=== PATIENT | male | born 1955 | race Caucasian/White ===

== ENCOUNTER 2018-10-21 11:37 | Emergency (ER) | payer MEDICAID, OTHER ==
[~2018-10-21] VITALS: Ht 182.9 cm; Wt 136.4 kg
[~2018-10-21 11:37] MED LIST: CEPH-443 PO; FURO40TA4 PO; POTA20TA96 PO; SULF1TAB31 PO; THYR130T5 PO
[2018-10-21 12:00] VITALS: Ht 182.9 cm; Wt 136.4 kg
[2018-10-21] MEDS ORDERED: SOD CHLORIDE 0.9% 1,000 ML IV STA (12:17)
[2018-10-21] MEDS ORDERED: HYDROmorphONE 1 MG/ML SYG IV STA (12:17)
[2018-10-21] MEDS ORDERED: ONDANSETRON 4 MG INJ IV STA (12:17)
--- NOTE | 2018-10-21 12:29 | ERD ---
ER Documentation Chief Complaint Chief Complaint scrotal swelling x pain x 3 wks, HPI This is a 63-year-old male with a past medical history of insulin-dependent diabetes mellitus. The patient is diabetic foot ulcers which were also infected and being treated with antibiotics. The patient presents to the emergency department as he states for the past 3 weeks he had been experiencing scrotal swelling. He been placed on diuretics and he indicates that the scrotal swelling has significantly improved. He denies any currently residing at [facility] nursing [facility]. The patient is a PICC line as he is receiving IV antibiotics for recent bacteremia. The patient has bilateral scrotal pain contrary to the triage note. The patient states he is having diffuse body pain from lying in a bed. He is on Percocet for pain control and indicated he did not get his Percocet prior to transfer to [facility] via EMS. He states his main reason for coming to the emergency department today as he has had on control of his urine since he is been placed on antibiotics and given that he is bedbound states that he has been urinating all over the bed. He is requesting a per [facility] catheter. He indicates he cannot handle placement of indwelling Cordova catheter states he is prone to infection and indicated to painful. He had no recent fever shaking or chills. He has no shortness of breath at rest or exertion. He denies any hematuria. ROS All systems reviewed and are negative except as per history of present illness. Medications Home Meds Active Scripts Sulfamethoxazole/Trimethoprim* (Bactrim Ds* Tablet) 1 Each Tablet, 1 TAB PO BID, #14 TAB Prov:JAY CARD MD 01/24/18 Cephalexin* (Keflex*) 500 Mg Capsule, 500 MG PO QID for 7 Days, CAP Prov:JAY CARD MD 01/24/18 Reported Medications Thyroid,Pork (Nature-Throid) 130 Mg Tablet, 130 MG PO DAILY, TAB 01/24/18 Potassium Chloride* (Potassium Chloride*) 20 Meq Tablet.er, 20 MEQ PO DAILY, TAB.SA 01/24/18 Furosemide* (Furosemide*) 40 Mg Tablet, 40 MG PO BID, TAB 01/24/18 Allergies Allergies: Coded Allergies: codeine (Unverified Allergy, Unknown, 01/24/18) PMhx/Soc History of Surgery: Yes (SPLEENECTOMY, TONSILS) Anesthesia Reaction: No Hx Neurological Disorder: No Hx Respiratory Disorders: No Hx Cardiac Disorders: No Hx Psychiatric Problems: No Hx Miscellaneous Medical Probl: Yes (HYPOTHYROID, HEPT C, DM) Hx Alcohol Use: No Hx Substance Use: No Hx Tobacco Use: No Physical Exam Vitals Vital Signs Date Temp Pulse Resp B/P (MAP) Pulse Ox O2 O2 Flow FiO2 Time Delivery Rate 10/21/18 97.8 81 18 128/71 95 12:00 (90) Physical Exam Constitutional:Well-developed. Well-nourished. HEENT:Normocephalic. Atraumatic.Pupils were equal round reactive to light. Dry mucous membranes.No tonsillar exudates. Respiratory: Not using accessory muscles of respiration.Lungs were clear to auscultation bilaterally. No rhonchi. No rales. No wheezing. Cardiovascular: Regular rate regular rhythm.No murmurs. No rubs were appreciated.S1, S2 normal. Distal pulses are palpable 2+ bilaterally. GI: Abdomen was soft. Nontender. Non Distended. No pulsatile abdominal masses or bruits. No rebound. No guarding. Bowel sounds were present and normal. : Bilateral scrotal swelling with no tenderness. Normal lie to both testicles. No warmth fluctuance or induration and no evidence of Dee's gangrene. Skin: No petechia, no purpura. No lesions on the palms or the soles of the feet. No maculopapular rash. Bilateral diabetic foot ulcers but no purulent drainage. Pain not out of proportion to physical exam. Present on the plantar surfaces of both feet. NEURO: Patient was alert, awake, orientated x3.patient is able to ambulate but requires assistance with a walker. Result Diagram: 10/21/18 1238 Results 24 hrs Laboratory Tests Test 10/21/18 12:38 White Blood Count 12.6 10^3/ul Red Blood Count 4.04 10^6/ul Hemoglobin 10.9 g/dl Hematocrit 34.6 % Mean Corpuscular Volume 85.6 fl Mean Corpuscular Hemoglobin 27.0 pg Mean Corpuscular Hemoglobin Concent 31.5 g/dl Red Cell Distribution Width 15.9 % Platelet Count 389 10^3/UL Mean Platelet Volume 10.5 fl Immature Granulocytes % 0.500 % Neutrophils % 69.2 % Lymphocytes % 12.7 % Monocytes % 11.2 % Eosinophils % 5.7 % Basophils % 0.7 % Nucleated Red Blood Cells % 0.0 /100WBC Immature Granulocytes # 0.060 10^3/ul Neutrophils # 8.7 10^3/ul Lymphocytes # 1.6 10^3/ul Monocytes # 1.4 10^3/ul Eosinophils # 0.7 10^3/ul Basophils # 0.1 10^3/ul Nucleated Red Blood Cells # 0.0 10^3/ul Current Medications Medications Dose Sig/Charity Start Time Status Last (Trade) Ordered Route PRN Stop Time Admin Dose Reason Admin Oxycodone/ 1 tab ONCE ONCE 10/21/18 Cancel Acetaminophen PO 12:30 10/21/18 (Endocet 12:31 (10 325)) Sodium 1,000 ml @ Q1H STAT 10/21/18 DC Chloride 1,000 mls/hr IV 12:17 10/21/18 13:16 1 mg ONCE STAT 10/21/18 DC 10/21/18 Hydromorphone IV 12:17 10/21/18 13:01 HCl 12:18 (Dilaudid) Ondansetron 4 mg ONCE STAT 10/21/18 DC 10/21/18 HCl (Zofran IV 12:17 10/21/18 13:01 Inj) 12:18 Procedures/MDM This is a 63-year-old male that presents to the emergency department requesting a Purewick catheter. The patient did show signs of clinical dehydration. The patient was given a liter bolus normal saline. He was also given intravenous Dilaudid and Zofran for analgesic control as the patient had not received his regular analgesic medication prior to arrival and was very uncomfortable lying on the bed. The patient had no urinary retention. No evidence of Dee's gangrene. He is currently undergoing antibiotics for bacteremia. The patient was requesting a Cordova catheter for urinary frequency which appeared to be a result of a diuretic. Both nursing staff and myself phoned central distribution in the OR but there were no purewick catheters available. The patient was very adamant that he only wanted a pure wick catheter and denied an indwelling Cordova catheter. Therefore at this time the patient was discharged back to [facility] and stated he will talk to his primary care physician Dr. Zurita about ordering a pure wick catheter which was initially placed at [facility]. Departure Diagnosis: Primary Impression: Urinary frequency Additional Impression: Dehydration Condition: OLIVER Hoffman MD Oct 21, 2018 12:29
[2018-10-21] MEDS ORDERED: OXYCODONE/ACETAMINOPHEN (10/325) TAB PO ONE ×2 (12:30→16:30)
[2018-10-21 18:26] VITALS: BP 130/57; PULSE 80; RESP 18
== END 2018-10-21 18:37 | disposition home or self-care (01) ==
LOC: E/R 11:37
DX: R35.0 Frequency of micturition (principal); E86.0 Dehydration; E03.9 Hypothyroidism, unspecified; E11.9 Type 2 diabetes mellitus without complications
CPT/HCPCS: 80053; 85025; 96374; J1170; J2405; J7030; Z7502; Z7610

== ENCOUNTER 2018-11-02 16:33 | Inpatient (IN) | payer OTHER ==
[~2018-11-02] VITALS: Ht 182.9 cm; Wt 116.1 kg
[~2018-11-02 16:33] MED LIST changes: +CARV6.2579 PO; +CIPR500T4 PO; +CLO15CR1 TOP; +FLUC200T PO; +HYDR-3670 PO; +LACHYD12 TOP; +LEVO125T7 PO; +LINE600T33 PO; +PRED20TA PO; +SODI473S5 TP; +TRAM50TA2 PO
[2018-11-03] VITALS (10 sets, daily range): BP systolic 133–152; BP diastolic 65–81; PULSE 71–112; RESP 18–20; BMI 46.1
[2018-11-03] MEDS ORDERED: traMADol 50 MG TAB PO PRN (02:30)
[2018-11-03] MEDS ORDERED: NACL 0.9% 3 ML SYG IV SCH (02:30)
[2018-11-03] MEDS ORDERED: VANCOMYCIN IV PER PHARMACY XX SCH (02:30)
[2018-11-03] MEDS ORDERED: ACETAMINOPHEN 325 MG TAB PO PRN (02:30)
[2018-11-03] MEDS ORDERED: ALBUTEROL/IPRATROPIUM (NEB) 3 ML AMP HHN PRN (02:30)
[2018-11-03] MEDS ORDERED: DEXTROSE 50% 50 ML SYRINGE IV PRN ×2 (03:00)
[2018-11-03] MEDS ORDERED: GLUCOSE GEL 15 GRAM TUBE BUCCAL PRN (03:00)
[2018-11-03] MEDS ORDERED: GLUCOSE GEL 15 GRAM TUBE PO PRN ×2 (03:00)
[2018-11-03] MEDS ORDERED: GLUCAGON 1 MG INJ IM PRN (03:00)
[2018-11-03] MEDS ORDERED: VANCOMYCIN HCL 2 GM in SOD CHLORIDE 0.9% 500 ML IVPB ONE (04:00)
[2018-11-03] MEDS ORDERED: PENDING SANTYL ORDER FOR WOUND CARE XX PRN (04:30)
[2018-11-03] MEDS: POTASSIUM CHLORIDE (SR) 20 MEQ TAB PO SCH (08:29)
[2018-11-03] MEDS: FUROSEMIDE 40 MG TAB PO SCH ×2 (08:29→16:59)
[2018-11-03] MEDS: CEFEPIME 1GM/50 ML (PMX) 50 ML IVPB SCH ×2 (08:30→20:45)
[2018-11-03] MEDS: HEPARIN 5,000 UNIT/1 ML VIAL SC SCH ×2 (08:33→21:15)
[2018-11-03] MEDS: INSULIN ASPART [NOVOLOG] 3 ML PEN SC SCH ×4 (08:35→21:00)
[2018-11-03] MEDS ORDERED: THYROID PORK 130 MG PO SCH (09:00)
[2018-11-03] MEDS: BACLOFEN 10 MG TAB PO SCH ×2 (12:31→20:44)
[2018-11-03] MEDS: HYDROCODONE/APAP (5/325) TAB PO PRN ×2 (14:06→20:44)
[2018-11-03] MEDS: INSULIN GLARGINE [LANTus] (100 UNITS/ML) SYG SC SCH (21:14)
[2018-11-03] MEDS: VANCOMYCIN HCL 1.5 GM in SOD CHLORIDE 0.9% 250 ML IVPB SCH (22:54)
[2018-11-04] VITALS (11 sets, daily range): BP systolic 106–135; BP diastolic 54–77; PULSE 70–88; RESP 18–20
[2018-11-04] MEDS: ACCU-CHEK XX SCH (01:52)
[2018-11-04] MEDS: HYDROCODONE/APAP (5/325) TAB PO PRN ×5 (02:36→22:44)
[2018-11-04] MEDS: FUROSEMIDE 40 MG TAB PO SCH ×2 (06:35→18:14)
[2018-11-04] MEDS: LEVOTHYROXINE 125 MCG TAB PO SCH (06:36)
[2018-11-04] MEDS: INSULIN ASPART [NOVOLOG] 3 ML PEN SC SCH ×4 (07:55→21:00)
[2018-11-04] MEDS: POTASSIUM CHLORIDE (SR) 20 MEQ TAB PO SCH (08:31)
[2018-11-04] MEDS: AMMONIUM LACTATE 12% 225 GM LOT TOP SCH (08:31)
[2018-11-04] MEDS: BACLOFEN 10 MG TAB PO SCH ×3 (08:31→21:07)
[2018-11-04] MEDS: CEFEPIME 1GM/50 ML (PMX) 50 ML IVPB SCH ×3 (08:31→21:06)
[2018-11-04] MEDS: DAKINS 0.0125%(1/40) 473 ML SOLUTION TP SCH (08:35)
[2018-11-04] MEDS: HEPARIN 5,000 UNIT/1 ML VIAL SC SCH ×2 (08:56→21:27)
[2018-11-04] MEDS: VANCOMYCIN HCL 1.5 GM in SOD CHLORIDE 0.9% 250 ML IVPB SCH ×2 (10:28→23:06)
[2018-11-04] MEDS ORDERED: LORAZEPAM 2 MG INJ IV ONE (11:00)
[2018-11-04] MEDS: NYSTATIN 30 GM POWDER BTL TOP SCH ×2 (15:50→22:12)
[2018-11-04] MEDS: INSULIN GLARGINE [LANTus] (100 UNITS/ML) SYG SC SCH (21:26)
[2018-11-05] VITALS (11 sets, daily range): BP systolic 120–159; BP diastolic 67–80; PULSE 55–92; RESP 18–20
[2018-11-05] MEDS: ACCU-CHEK XX SCH (02:00)
[2018-11-05] MEDS: HYDROCODONE/APAP (5/325) TAB PO PRN ×3 (02:56→23:52)
[2018-11-05] MEDS: LEVOTHYROXINE 125 MCG TAB PO SCH (06:36)
[2018-11-05] MEDS: FUROSEMIDE 40 MG TAB PO SCH ×2 (06:36→18:00)
[2018-11-05] MEDS: INSULIN ASPART [NOVOLOG] 3 ML PEN SC SCH ×4 (07:55→21:00)
[2018-11-05] MEDS: POTASSIUM CHLORIDE (SR) 20 MEQ TAB PO SCH (08:50)
[2018-11-05] MEDS: BACLOFEN 10 MG TAB PO SCH ×3 (08:50→20:39)
[2018-11-05] MEDS: CEFEPIME 1GM/50 ML (PMX) 50 ML IVPB SCH (08:50)
[2018-11-05] MEDS: AMMONIUM LACTATE 12% 225 GM LOT TOP SCH (08:54)
[2018-11-05] MEDS: NYSTATIN 30 GM POWDER BTL TOP SCH ×2 (08:54→22:20)
[2018-11-05] MEDS: DAKINS 0.0125%(1/40) 473 ML SOLUTION TP SCH (08:55)
[2018-11-05] MEDS: HEPARIN 5,000 UNIT/1 ML VIAL SC SCH ×2 (09:06→21:06)
[2018-11-05] MEDS ORDERED: VANCOMYCIN HCL 1.75 GM in SOD CHLORIDE 0.9% 500 ML IVPB SCH (11:00)
[2018-11-05] MEDS: LINEZOLID 600 MG/300 ML (PMX) 300 ML IVPB SCH (20:32)
[2018-11-05] MEDS: INSULIN GLARGINE [LANTus] (100 UNITS/ML) SYG SC SCH (21:21)
[2018-11-05] MEDS: ERTAPENEM SODIUM 1 GM in SOD CHLORIDE 0.9% 100 ML IVPB SCH (22:20)
[2018-11-06] VITALS (12 sets, daily range): BP systolic 118–136; BP diastolic 69–87; PULSE 73–100; RESP 18–20
[2018-11-06] MEDS: ACCU-CHEK XX SCH (02:00)
[2018-11-06] MEDS: HYDROCODONE/APAP (5/325) TAB PO PRN ×5 (04:34→20:36)
[2018-11-06] MEDS: LEVOTHYROXINE 125 MCG TAB PO SCH (06:51)
[2018-11-06] MEDS: FUROSEMIDE 40 MG TAB PO SCH ×2 (06:51→17:27)
[2018-11-06] MEDS: INSULIN ASPART [NOVOLOG] 3 ML PEN SC SCH ×4 (07:55→20:12)
[2018-11-06] MEDS: DAKINS 0.0125%(1/40) 473 ML SOLUTION TP SCH (08:24)
[2018-11-06] MEDS: NYSTATIN 30 GM POWDER BTL TOP SCH ×2 (08:24→20:08)
[2018-11-06] MEDS: AMMONIUM LACTATE 12% 225 GM LOT TOP SCH (08:24)
[2018-11-06] MEDS: LINEZOLID 600 MG/300 ML (PMX) 300 ML IVPB SCH (08:24)
[2018-11-06] MEDS: POTASSIUM CHLORIDE (SR) 20 MEQ TAB PO SCH (08:24)
[2018-11-06] MEDS: BACLOFEN 10 MG TAB PO SCH ×3 (08:24→20:05)
[2018-11-06] MEDS: HEPARIN 5,000 UNIT/1 ML VIAL SC SCH ×2 (08:33→20:28)
[2018-11-06] MEDS: FLUCONAZOLE 200 MG TAB PO SCH (10:30)
[2018-11-06] MEDS ORDERED: LIDOCAINE 1% (MPF) 5 ML VIAL SC ONE (10:30)
[2018-11-06] MEDS: INSULIN GLARGINE [LANTus] (100 UNITS/ML) SYG SC SCH (20:30)
[2018-11-06] MEDS: POLYETHYLENE GLYCOL 17 GM PACKET PO SCH (22:57)
[2018-11-06] MEDS: DOCUSATE SODIUM 100 MG CAP PO SCH (22:57)
[2018-11-07] VITALS (11 sets, daily range): BP systolic 120–157; BP diastolic 58–88; PULSE 67–97; RESP 17–20
[2018-11-07] MEDS: HYDROCODONE/APAP (5/325) TAB PO PRN ×6 (01:00→20:16)
[2018-11-07] MEDS: ACCU-CHEK XX SCH (02:00)
[2018-11-07] MEDS: LEVOTHYROXINE 125 MCG TAB PO SCH (06:18)
[2018-11-07] MEDS: FUROSEMIDE 40 MG TAB PO SCH ×2 (06:21→17:07)
[2018-11-07] MEDS: BACLOFEN 10 MG TAB PO SCH ×3 (07:52→20:15)
[2018-11-07] MEDS: FLUCONAZOLE 200 MG TAB PO SCH (07:52)
[2018-11-07] MEDS: DOCUSATE SODIUM 100 MG CAP PO SCH ×2 (07:52→20:16)
[2018-11-07] MEDS: CLOTRIMAZOLE 1% 30 GM CR TOP SCH (07:53)
[2018-11-07] MEDS: AMMONIUM LACTATE 12% 225 GM LOT TOP SCH (07:53)
[2018-11-07] MEDS: NYSTATIN 30 GM POWDER BTL TOP SCH ×2 (07:54→21:00)
[2018-11-07] MEDS: DAKINS 0.0125%(1/40) 473 ML SOLUTION TP SCH (07:54)
[2018-11-07] MEDS: INSULIN ASPART [NOVOLOG] 3 ML PEN SC SCH ×4 (07:55→21:00)
[2018-11-07] MEDS: POTASSIUM CHLORIDE (SR) 20 MEQ TAB PO SCH (08:14)
[2018-11-07] MEDS: LINEZOLID 600 MG/300 ML (PMX) 300 ML IVPB SCH ×2 (08:15→21:56)
[2018-11-07] MEDS: LISINOPRIL 5 MG TAB PO SCH (08:21)
[2018-11-07] MEDS: HEPARIN 5,000 UNIT/1 ML VIAL SC SCH ×2 (08:21→21:35)
[2018-11-07] MEDS: POLYETHYLENE GLYCOL 17 GM PACKET PO SCH (08:21)
[2018-11-07] MEDS ORDERED: MAGNESIUM SULFATE 2 GM/50 ML 50 ML IVPB ONE ×2 (08:30→09:00)
[2018-11-07] MEDS ORDERED: METOLAZONE 5 MG TAB PO ONE (08:30)
[2018-11-07] MEDS ORDERED: IODIXANOL LOCM 100 ML BTL ONE (17:46)
[2018-11-07] MEDS ORDERED: SOD CHLORIDE 0.9% 100 ML ONE (17:46)
[2018-11-07] MEDS ORDERED: IODIXANOL LOCM 50 ML BTL ONE (17:46)
[2018-11-07] MEDS: ERTAPENEM SODIUM 1 GM in SOD CHLORIDE 0.9% 100 ML IVPB SCH ×2 (20:20→20:30)
[2018-11-07] MEDS: ONDANSETRON 4 MG INJ IV PRN (21:31)
[2018-11-07] MEDS: INSULIN GLARGINE [LANTus] (100 UNITS/ML) SYG SC SCH (21:35)
[2018-11-08] VITALS (12 sets, daily range): BP systolic 125–158; BP diastolic 68–77; PULSE 61–94; RESP 16–22
[2018-11-08] MEDS: HYDROCODONE/APAP (5/325) TAB PO PRN ×4 (01:40→23:30)
[2018-11-08] MEDS: ACCU-CHEK XX SCH (02:15)
[2018-11-08] MEDS: ONDANSETRON 4 MG INJ IV PRN ×3 (05:53→23:30)
[2018-11-08] MEDS: LEVOTHYROXINE 125 MCG TAB PO SCH (06:10)
[2018-11-08] MEDS: FUROSEMIDE 40 MG TAB PO SCH ×2 (06:23→17:29)
[2018-11-08] MEDS: INSULIN ASPART [NOVOLOG] 3 ML PEN SC SCH ×4 (07:55→21:00)
[2018-11-08] MEDS: DOCUSATE SODIUM 100 MG CAP PO SCH ×2 (08:46→21:34)
[2018-11-08] MEDS: BACLOFEN 10 MG TAB PO SCH ×3 (08:46→21:34)
[2018-11-08] MEDS: LISINOPRIL 5 MG TAB PO SCH (08:47)
[2018-11-08] MEDS: FLUCONAZOLE 200 MG TAB PO SCH (08:48)
[2018-11-08] MEDS: POLYETHYLENE GLYCOL 17 GM PACKET PO SCH (08:49)
[2018-11-08] MEDS: LINEZOLID 600 MG/300 ML (PMX) 300 ML IVPB SCH (08:49)
[2018-11-08] MEDS: HEPARIN 5,000 UNIT/1 ML VIAL SC SCH ×2 (09:33→22:10)
[2018-11-08] MEDS: DAKINS 0.0125%(1/40) 473 ML SOLUTION TP SCH (12:51)
[2018-11-08] MEDS: AMMONIUM LACTATE 12% 225 GM LOT TOP SCH (12:51)
[2018-11-08] MEDS: CLOTRIMAZOLE 1% 30 GM CR TOP SCH (12:52)
[2018-11-08] MEDS: NYSTATIN 30 GM POWDER BTL TOP SCH ×2 (12:52→21:38)
[2018-11-08] MEDS: INSULIN GLARGINE [LANTus] (100 UNITS/ML) SYG SC SCH (20:00)
[2018-11-08] MEDS: ERTAPENEM SODIUM 1 GM in SOD CHLORIDE 0.9% 100 ML IVPB SCH (20:30)
[2018-11-08] MEDS: ZYVOX 600 MG TAB PO SCH (21:34)
[2018-11-09] VITALS (7 sets, daily range): BP systolic 118–159; BP diastolic 59–86; PULSE 77–95; RESP 17–20
[2018-11-09] MEDS: ACCU-CHEK XX SCH (02:00)
[2018-11-09] MEDS: HYDROCODONE/APAP (5/325) TAB PO PRN ×4 (03:57→21:13)
[2018-11-09] MEDS: FUROSEMIDE 40 MG TAB PO SCH ×2 (06:35→17:31)
[2018-11-09] MEDS: LEVOTHYROXINE 125 MCG TAB PO SCH (06:35)
[2018-11-09] MEDS: INSULIN ASPART [NOVOLOG] 3 ML PEN SC SCH ×4 (07:55→21:30)
[2018-11-09] MEDS ORDERED: SODIUM POLYSTYRENE 15 GM KIT (POWDER + SORBITOL) PO ONE (09:00)
[2018-11-09] MEDS ORDERED: METOLAZONE 5 MG TAB PO ONE (09:00)
[2018-11-09] MEDS: POLYETHYLENE GLYCOL 17 GM PACKET PO SCH (09:45)
[2018-11-09] MEDS: DOCUSATE SODIUM 100 MG CAP PO SCH ×2 (09:45→21:14)
[2018-11-09] MEDS: BACLOFEN 10 MG TAB PO SCH ×3 (09:45→21:14)
[2018-11-09] MEDS: LISINOPRIL 5 MG TAB PO SCH (09:45)
[2018-11-09] MEDS: ZYVOX 600 MG TAB PO SCH ×2 (09:45→21:14)
[2018-11-09] MEDS: FLUCONAZOLE 200 MG TAB PO SCH (09:46)
[2018-11-09] MEDS: ONDANSETRON 4 MG INJ IV PRN (10:04)
[2018-11-09] MEDS: HEPARIN 5,000 UNIT/1 ML VIAL SC SCH ×2 (10:08→21:30)
[2018-11-09] MEDS: NYSTATIN 30 GM POWDER BTL TOP SCH ×2 (12:52→21:00)
[2018-11-09] MEDS: DAKINS 0.0125%(1/40) 473 ML SOLUTION TP SCH (12:52)
[2018-11-09] MEDS: AMMONIUM LACTATE 12% 225 GM LOT TOP SCH (12:52)
[2018-11-09] MEDS: CLOTRIMAZOLE 1% 30 GM CR TOP SCH (12:53)
[2018-11-09] MEDS: INSULIN GLARGINE [LANTus] (100 UNITS/ML) SYG SC SCH (20:00)
[2018-11-09] MEDS: ERTAPENEM SODIUM 1 GM in SOD CHLORIDE 0.9% 100 ML IVPB SCH (21:35)
[2018-11-10] VITALS (7 sets, daily range): BP systolic 109–141; BP diastolic 56–75; PULSE 71–88; RESP 20
[2018-11-10] MEDS: ACCU-CHEK XX SCH (02:23)
[2018-11-10] MEDS: HYDROCODONE/APAP (5/325) TAB PO PRN ×2 (04:07→18:22)
[2018-11-10] MEDS: ONDANSETRON 4 MG INJ IV PRN (05:32)
[2018-11-10] MEDS: LEVOTHYROXINE 125 MCG TAB PO SCH (05:36)
[2018-11-10] MEDS: FUROSEMIDE 40 MG TAB PO SCH ×2 (05:36→17:31)
[2018-11-10] MEDS: INSULIN ASPART [NOVOLOG] 3 ML PEN SC SCH ×4 (07:41→20:51)
[2018-11-10] MEDS: BACLOFEN 10 MG TAB PO SCH ×3 (09:08→20:44)
[2018-11-10] MEDS: FLUCONAZOLE 200 MG TAB PO SCH (09:08)
[2018-11-10] MEDS: ZYVOX 600 MG TAB PO SCH ×2 (09:08→20:43)
[2018-11-10] MEDS: POLYETHYLENE GLYCOL 17 GM PACKET PO SCH (09:08)
[2018-11-10] MEDS: DOCUSATE SODIUM 100 MG CAP PO SCH ×2 (09:08→21:03)
[2018-11-10] MEDS: NYSTATIN 30 GM POWDER BTL TOP SCH ×2 (09:10→20:57)
[2018-11-10] MEDS: DAKINS 0.0125%(1/40) 473 ML SOLUTION TP SCH (09:10)
[2018-11-10] MEDS: AMMONIUM LACTATE 12% 225 GM LOT TOP SCH (09:10)
[2018-11-10] MEDS: CLOTRIMAZOLE 1% 30 GM CR TOP SCH (09:11)
[2018-11-10] MEDS: HEPARIN 5,000 UNIT/1 ML VIAL SC SCH ×2 (09:18→20:48)
[2018-11-10] MEDS: INSULIN GLARGINE [LANTus] (100 UNITS/ML) SYG SC SCH (20:38)
[2018-11-11] MEDS: ERTAPENEM SODIUM 1 GM in SOD CHLORIDE 0.9% 100 ML IVPB SCH ×2 (00:01→21:00)
[2018-11-11] MEDS: HYDROCODONE/APAP (5/325) TAB PO PRN ×3 (01:12→23:12)
[2018-11-11] MEDS: ACCU-CHEK XX SCH (02:00)
[2018-11-11 03:36] VITALS: BP 119/74; PULSE 82; RESP 20
[2018-11-11] MEDS: FUROSEMIDE 40 MG TAB PO SCH ×2 (05:49→18:06)
[2018-11-11] MEDS: LEVOTHYROXINE 125 MCG TAB PO SCH (05:49)
[2018-11-11 07:50] VITALS: BP 145/79; PULSE 75; RESP 20
[2018-11-11] MEDS: INSULIN ASPART [NOVOLOG] 3 ML PEN SC SCH ×4 (07:55→20:56)
[2018-11-11] MEDS: BACLOFEN 10 MG TAB PO SCH ×3 (08:54→20:48)
[2018-11-11] MEDS: ZYVOX 600 MG TAB PO SCH ×2 (08:55→20:48)
[2018-11-11] MEDS: FLUCONAZOLE 200 MG TAB PO SCH (08:55)
[2018-11-11] MEDS: POLYETHYLENE GLYCOL 17 GM PACKET PO SCH (08:56)
[2018-11-11] MEDS: DOCUSATE SODIUM 100 MG CAP PO SCH ×2 (08:56→20:48)
[2018-11-11] MEDS: HEPARIN 5,000 UNIT/1 ML VIAL SC SCH ×2 (09:01→20:51)
[2018-11-11 11:50] VITALS: BP 141/71; PULSE 80; RESP 20
[2018-11-11] MEDS: NYSTATIN 30 GM POWDER BTL TOP SCH ×2 (13:39→21:26)
[2018-11-11] MEDS: DAKINS 0.0125%(1/40) 473 ML SOLUTION TP SCH (13:43)
[2018-11-11] MEDS: AMMONIUM LACTATE 12% 225 GM LOT TOP SCH (13:43)
[2018-11-11] MEDS: CLOTRIMAZOLE 1% 30 GM CR TOP SCH (13:43)
[2018-11-11 15:22] VITALS: BP 140/63; PULSE 90; RESP 20
[2018-11-11 19:23] VITALS: BP 121/59; PULSE 79; RESP 18
[2018-11-11] MEDS: INSULIN GLARGINE [LANTus] (100 UNITS/ML) SYG SC SCH (20:00)
[2018-11-12] MEDS: ACCU-CHEK XX SCH (02:00)
[2018-11-12 04:41] VITALS: BP 127/74; PULSE 92; RESP 18
[2018-11-12] MEDS: FUROSEMIDE 40 MG TAB PO SCH (06:20)
[2018-11-12] MEDS: LEVOTHYROXINE 125 MCG TAB PO SCH (06:20)
[2018-11-12] MEDS: HYDROCODONE/APAP (5/325) TAB PO PRN ×3 (06:21→21:06)
[2018-11-12 07:25] VITALS: BP 132/72; PULSE 90; RESP 18
[2018-11-12] MEDS: INSULIN ASPART [NOVOLOG] 3 ML PEN SC SCH ×4 (07:52→21:00)
[2018-11-12] MEDS: AMMONIUM LACTATE 12% 225 GM LOT TOP SCH (08:51)
[2018-11-12] MEDS: NYSTATIN 30 GM POWDER BTL TOP SCH ×2 (08:52→21:24)
[2018-11-12] MEDS: DAKINS 0.0125%(1/40) 473 ML SOLUTION TP SCH (08:52)
[2018-11-12] MEDS: CLOTRIMAZOLE 1% 30 GM CR TOP SCH (08:52)
[2018-11-12] MEDS: ZYVOX 600 MG TAB PO SCH ×2 (08:52→21:06)
[2018-11-12] MEDS: FLUCONAZOLE 200 MG TAB PO SCH (08:52)
[2018-11-12] MEDS: BACLOFEN 10 MG TAB PO SCH ×3 (08:52→21:06)
[2018-11-12] MEDS: POLYETHYLENE GLYCOL 17 GM PACKET PO SCH (08:53)
[2018-11-12] MEDS: DOCUSATE SODIUM 100 MG CAP PO SCH ×2 (08:53→21:07)
[2018-11-12] MEDS: HEPARIN 5,000 UNIT/1 ML VIAL SC SCH ×2 (08:58→21:14)
[2018-11-12 12:00] VITALS: BP 129/75; PULSE 84; RESP 19
[2018-11-12 15:28] VITALS: BP 114/56; PULSE 84; RESP 19
[2018-11-12 20:00] VITALS: BP 108/56; PULSE 76; RESP 18
[2018-11-12] MEDS: ERTAPENEM SODIUM 1 GM in SOD CHLORIDE 0.9% 100 ML IVPB SCH (20:54)
[2018-11-13] VITALS (7 sets, daily range): BP systolic 116–143; BP diastolic 62–75; PULSE 70–86; RESP 18–20
[2018-11-13] MEDS: ACCU-CHEK XX SCH (02:00)
[2018-11-13] MEDS: HYDROCODONE/APAP (5/325) TAB PO PRN ×3 (04:31→17:59)
[2018-11-13] MEDS: LEVOTHYROXINE 125 MCG TAB PO SCH (06:30)
[2018-11-13] MEDS: POLYETHYLENE GLYCOL 17 GM PACKET PO SCH (08:25)
[2018-11-13] MEDS: DOCUSATE SODIUM 100 MG CAP PO SCH ×2 (08:26→21:34)
[2018-11-13] MEDS: BACLOFEN 10 MG TAB PO SCH ×3 (08:27→21:35)
[2018-11-13] MEDS: FLUCONAZOLE 200 MG TAB PO SCH (08:27)
[2018-11-13] MEDS: ZYVOX 600 MG TAB PO SCH ×2 (08:27→21:34)
[2018-11-13] MEDS: DAKINS 0.0125%(1/40) 473 ML SOLUTION TP SCH (08:28)
[2018-11-13] MEDS: AMMONIUM LACTATE 12% 225 GM LOT TOP SCH (08:28)
[2018-11-13] MEDS: CLOTRIMAZOLE 1% 30 GM CR TOP SCH (08:28)
[2018-11-13] MEDS: NYSTATIN 30 GM POWDER BTL TOP SCH ×2 (08:29→21:36)
[2018-11-13] MEDS: INSULIN ASPART [NOVOLOG] 3 ML PEN SC SCH ×4 (08:55→21:00)
[2018-11-13] MEDS: HEPARIN 5,000 UNIT/1 ML VIAL SC SCH ×2 (08:55→22:04)
[2018-11-13] MEDS: ERTAPENEM SODIUM 1 GM in SOD CHLORIDE 0.9% 100 ML IVPB SCH (21:34)
[2018-11-14] VITALS (10 sets, daily range): BP systolic 114–150; BP diastolic 63–84; PULSE 74–106; RESP 14–22
[2018-11-14] MEDS: HYDROCODONE/APAP (5/325) TAB PO PRN ×4 (00:07→22:32)
[2018-11-14] MEDS: ACCU-CHEK XX SCH (02:00)
[2018-11-14] MEDS: LEVOTHYROXINE 125 MCG TAB PO SCH (05:42)
[2018-11-14] MEDS: INSULIN ASPART [NOVOLOG] 3 ML PEN SC SCH ×4 (07:55→21:00)
[2018-11-14] MEDS: CLOTRIMAZOLE 1% 30 GM CR TOP SCH (08:41)
[2018-11-14] MEDS: ZYVOX 600 MG TAB PO SCH ×2 (08:41→21:11)
[2018-11-14] MEDS: BACLOFEN 10 MG TAB PO SCH ×3 (08:41→21:11)
[2018-11-14] MEDS: FLUCONAZOLE 200 MG TAB PO SCH (08:41)
[2018-11-14] MEDS: NYSTATIN 30 GM POWDER BTL TOP SCH ×2 (08:41→22:33)
[2018-11-14] MEDS: AMMONIUM LACTATE 12% 225 GM LOT TOP SCH (08:44)
[2018-11-14] MEDS: HEPARIN 5,000 UNIT/1 ML VIAL SC SCH ×2 (08:44→21:34)
[2018-11-14] MEDS: DAKINS 0.0125%(1/40) 473 ML SOLUTION TP SCH (08:45)
[2018-11-14] MEDS: DOCUSATE SODIUM 100 MG CAP PO SCH ×2 (08:45→21:10)
[2018-11-14] MEDS: POLYETHYLENE GLYCOL 17 GM PACKET PO SCH (08:45)
[2018-11-14] MEDS ORDERED: SUCCINYLCHOLINE CHLORIDE 100 MG/5 ML SYG IV ONE (16:00)
[2018-11-14] MEDS ORDERED: ROCURONIUM 50 MG INJ ONE (16:00)
[2018-11-14] MEDS ORDERED: ETOMIDATE 20 MG INJ ONE (16:00)
[2018-11-14] MEDS ORDERED: DESFLURANE 15 MIN ONE (16:00)
[2018-11-14] MEDS ORDERED: MIDAZOLAM 1 MG/ML 2 ML INJ ONE (16:01)
[2018-11-14] MEDS ORDERED: ROPIVACAINE 0.5 % 30 ML VIAL ONE (16:05)
[2018-11-14] MEDS ORDERED: ROPIVACAINE 0.2% 20 ML VIAL ONE (16:05)
[2018-11-14] MEDS ORDERED: POLYMYXIN/BACITRACIN 1L IRRIG ONE (16:08)
[2018-11-14] MEDS ORDERED: VANCOMYCIN 1 GM INJ ONE (16:20)
[2018-11-14] MEDS ORDERED: TOBRAMYCIN 1.2 GM POWDER ONE (16:21)
[2018-11-14] MEDS ORDERED: POLYMYXIN B 500000 UNIT INJ ONE (16:23)
[2018-11-14] MEDS ORDERED: BACITRACIN 50000 UNITS INJ ONE (16:24)
[2018-11-14] MEDS ORDERED: CEFAZOLIN 1 GM INJ ONE (16:27)
[2018-11-14] MEDS ORDERED: GELATIN SIZE 100 SPONGE ONE (17:30)
[2018-11-14] MEDS: ERTAPENEM SODIUM 1 GM in SOD CHLORIDE 0.9% 100 ML IVPB SCH (21:10)
[2018-11-15] VITALS (7 sets, daily range): BP systolic 11–140; BP diastolic 53–70; PULSE 73–89; RESP 17–23
[2018-11-15] MEDS: ACCU-CHEK XX SCH (02:00)
[2018-11-15] MEDS: HYDROCODONE/APAP (5/325) TAB PO PRN ×3 (02:35→20:45)
[2018-11-15] MEDS: LEVOTHYROXINE 125 MCG TAB PO SCH (06:18)
[2018-11-15] MEDS: FLUCONAZOLE 200 MG TAB PO SCH (08:06)
[2018-11-15] MEDS: BACLOFEN 10 MG TAB PO SCH ×3 (08:06→21:56)
[2018-11-15] MEDS: ZYVOX 600 MG TAB PO SCH ×2 (08:06→21:56)
[2018-11-15] MEDS: DOCUSATE SODIUM 100 MG CAP PO SCH ×2 (08:06→21:56)
[2018-11-15] MEDS: INSULIN ASPART [NOVOLOG] 3 ML PEN SC SCH ×4 (08:17→21:00)
[2018-11-15] MEDS: HEPARIN 5,000 UNIT/1 ML VIAL SC SCH ×2 (08:30→23:24)
[2018-11-15] MEDS: DAKINS 0.0125%(1/40) 473 ML SOLUTION TP SCH (09:00)
[2018-11-15] MEDS: POLYETHYLENE GLYCOL 17 GM PACKET PO SCH (09:00)
[2018-11-15] MEDS: CLOTRIMAZOLE 1% 30 GM CR TOP SCH (09:00)
[2018-11-15] MEDS: NYSTATIN 30 GM POWDER BTL TOP SCH ×2 (09:00→22:04)
[2018-11-15] MEDS: AMMONIUM LACTATE 12% 225 GM LOT TOP SCH (09:00)
[2018-11-15] MEDS: ERTAPENEM SODIUM 1 GM in SOD CHLORIDE 0.9% 100 ML IVPB SCH (20:30)
[2018-11-16] MEDS: ACCU-CHEK XX SCH (02:00)
[2018-11-16] MEDS: HYDROCODONE/APAP (5/325) TAB PO PRN ×5 (02:54→22:49)
[2018-11-16 03:26] VITALS: BP 127/64; PULSE 80; RESP 18
[2018-11-16] MEDS: LEVOTHYROXINE 125 MCG TAB PO SCH (06:02)
[2018-11-16 07:38] VITALS: BP 125/62; PULSE 78; RESP 18
[2018-11-16] MEDS: INSULIN ASPART [NOVOLOG] 3 ML PEN SC SCH ×4 (07:40→21:20)
[2018-11-16] MEDS: BACLOFEN 10 MG TAB PO SCH ×3 (08:37→21:07)
[2018-11-16] MEDS: FLUCONAZOLE 200 MG TAB PO SCH (08:37)
[2018-11-16] MEDS: DOCUSATE SODIUM 100 MG CAP PO SCH ×2 (08:37→21:07)
[2018-11-16] MEDS: ZYVOX 600 MG TAB PO SCH ×2 (08:37→21:07)
[2018-11-16] MEDS: FUROSEMIDE 20 MG TAB PO SCH (08:39)
[2018-11-16] MEDS: NYSTATIN 30 GM POWDER BTL TOP SCH ×2 (08:40→21:21)
[2018-11-16] MEDS: HEPARIN 5,000 UNIT/1 ML VIAL SC SCH ×2 (08:52→21:21)
[2018-11-16] MEDS: AMMONIUM LACTATE 12% 225 GM LOT TOP SCH (09:00)
[2018-11-16] MEDS: DAKINS 0.0125%(1/40) 473 ML SOLUTION TP SCH (09:00)
[2018-11-16] MEDS: POLYETHYLENE GLYCOL 17 GM PACKET PO SCH (09:00)
[2018-11-16] MEDS: CLOTRIMAZOLE 1% 30 GM CR TOP SCH (09:00)
[2018-11-16] MEDS ORDERED: morphine 2 MG INJ IV PRN (10:00)
[2018-11-16 12:41] VITALS: BP 122/60; PULSE 79; RESP 18
[2018-11-16 15:05] VITALS: BP 126/60; PULSE 82; RESP 19
[2018-11-16 19:45] VITALS: BP 107/59; PULSE 97; RESP 20
[2018-11-16] MEDS: ERTAPENEM SODIUM 1 GM in SOD CHLORIDE 0.9% 100 ML IVPB SCH (21:07)
[2018-11-16 23:27] VITALS: BP 122/55; PULSE 97; RESP 18
[2018-11-17] VITALS (7 sets, daily range): BP systolic 102–128; BP diastolic 56–68; PULSE 69–91; RESP 18–21
[2018-11-17] MEDS: ACCU-CHEK XX SCH (02:30)
[2018-11-17] MEDS: HYDROCODONE/APAP (5/325) TAB PO PRN ×5 (05:28→23:42)
[2018-11-17] MEDS: LEVOTHYROXINE 125 MCG TAB PO SCH (05:28)
[2018-11-17] MEDS: POLYETHYLENE GLYCOL 17 GM PACKET PO SCH (08:08)
[2018-11-17] MEDS: FLUCONAZOLE 200 MG TAB PO SCH (08:08)
[2018-11-17] MEDS: DOCUSATE SODIUM 100 MG CAP PO SCH ×2 (08:09→20:41)
[2018-11-17] MEDS: BACLOFEN 10 MG TAB PO SCH ×3 (08:09→20:42)
[2018-11-17] MEDS: ZYVOX 600 MG TAB PO SCH ×2 (08:09→20:41)
[2018-11-17] MEDS: FUROSEMIDE 20 MG TAB PO SCH (08:10)
[2018-11-17] MEDS: HEPARIN 5,000 UNIT/1 ML VIAL SC SCH ×2 (08:18→21:03)
[2018-11-17] MEDS: CLOTRIMAZOLE 1% 30 GM CR TOP SCH (08:26)
[2018-11-17] MEDS: NYSTATIN 30 GM POWDER BTL TOP SCH ×2 (08:26→21:04)
[2018-11-17] MEDS: DAKINS 0.0125%(1/40) 473 ML SOLUTION TP SCH (08:26)
[2018-11-17] MEDS: AMMONIUM LACTATE 12% 225 GM LOT TOP SCH (08:29)
[2018-11-17] MEDS: INSULIN ASPART [NOVOLOG] 3 ML PEN SC SCH ×4 (08:29→21:02)
[2018-11-17] MEDS: ERTAPENEM SODIUM 1 GM in SOD CHLORIDE 0.9% 100 ML IVPB SCH (20:43)
[2018-11-18] MEDS: ACCU-CHEK XX SCH (02:00)
[2018-11-18] MEDS: traMADol 50 MG TAB PO PRN (02:05)
[2018-11-18 03:29] VITALS: BP 121/71; PULSE 83; RESP 18
[2018-11-18] MEDS: LEVOTHYROXINE 125 MCG TAB PO SCH (05:02)
[2018-11-18] MEDS: HYDROCODONE/APAP (5/325) TAB PO PRN ×4 (05:11→21:43)
[2018-11-18 07:39] VITALS: BP 120/69; PULSE 80; RESP 19
[2018-11-18] MEDS: ZYVOX 600 MG TAB PO SCH ×2 (08:24→21:26)
[2018-11-18] MEDS: BACLOFEN 10 MG TAB PO SCH ×3 (08:25→21:26)
[2018-11-18] MEDS: DOCUSATE SODIUM 100 MG CAP PO SCH ×2 (08:25→21:26)
[2018-11-18] MEDS: FLUCONAZOLE 200 MG TAB PO SCH (08:25)
[2018-11-18] MEDS: CLOTRIMAZOLE 1% 30 GM CR TOP SCH (08:26)
[2018-11-18] MEDS: NYSTATIN 30 GM POWDER BTL TOP SCH ×2 (08:26→21:00)
[2018-11-18] MEDS: POLYETHYLENE GLYCOL 17 GM PACKET PO SCH (08:26)
[2018-11-18] MEDS: FUROSEMIDE 20 MG TAB PO SCH (08:26)
[2018-11-18] MEDS: DAKINS 0.0125%(1/40) 473 ML SOLUTION TP SCH (08:27)
[2018-11-18] MEDS: AMMONIUM LACTATE 12% 225 GM LOT TOP SCH (08:27)
[2018-11-18] MEDS: HEPARIN 5,000 UNIT/1 ML VIAL SC SCH ×2 (08:36→21:46)
[2018-11-18] MEDS: INSULIN ASPART [NOVOLOG] 3 ML PEN SC SCH ×4 (08:37→21:46)
[2018-11-18 11:29] VITALS: BP 115/63; PULSE 75; RESP 18
[2018-11-18 15:24] VITALS: BP 119/68; PULSE 89; RESP 18
[2018-11-18] MEDS: ONDANSETRON 4 MG INJ IV PRN (18:34)
[2018-11-18 19:51] VITALS: BP 122/64; PULSE 97; RESP 18
[2018-11-18] MEDS: CEFEPIME 2GM/50 ML (PMX) 50 ML IVPB SCH (21:25)
[2018-11-18 23:57] VITALS: BP 125/69; PULSE 93; RESP 18
[2018-11-19] MEDS: traMADol 50 MG TAB PO PRN ×3 (00:15→21:48)
[2018-11-19] MEDS: HYDROCODONE/APAP (5/325) TAB PO PRN ×5 (02:21→22:54)
[2018-11-19] MEDS: ACCU-CHEK XX SCH (02:29)
[2018-11-19 04:06] VITALS: BP 125/69; PULSE 94; RESP 19
[2018-11-19] MEDS: LEVOTHYROXINE 125 MCG TAB PO SCH (05:23)
[2018-11-19 07:49] VITALS: BP 124/65; PULSE 76; RESP 18
[2018-11-19] MEDS: INSULIN ASPART [NOVOLOG] 3 ML PEN SC SCH ×5 (07:59→20:43)
[2018-11-19] MEDS: ZYVOX 600 MG TAB PO SCH ×2 (08:13→20:26)
[2018-11-19] MEDS: FLUCONAZOLE 200 MG TAB PO SCH (08:13)
[2018-11-19] MEDS: FUROSEMIDE 20 MG TAB PO SCH (08:14)
[2018-11-19] MEDS: CEFEPIME 2GM/50 ML (PMX) 50 ML IVPB SCH ×2 (08:14→20:27)
[2018-11-19] MEDS: BACLOFEN 10 MG TAB PO SCH ×3 (08:14→20:27)
[2018-11-19] MEDS: DOCUSATE SODIUM 100 MG CAP PO SCH ×2 (08:14→20:26)
[2018-11-19] MEDS: HEPARIN 5,000 UNIT/1 ML VIAL SC SCH (08:15)
[2018-11-19] MEDS: DAKINS 0.0125%(1/40) 473 ML SOLUTION TP SCH (08:15)
[2018-11-19] MEDS: POLYETHYLENE GLYCOL 17 GM PACKET PO SCH (08:15)
[2018-11-19] MEDS: CLOTRIMAZOLE 1% 30 GM CR TOP SCH (08:15)
[2018-11-19] MEDS: AMMONIUM LACTATE 12% 225 GM LOT TOP SCH (08:22)
[2018-11-19] MEDS: NYSTATIN 30 GM POWDER BTL TOP SCH ×2 (08:22→20:28)
[2018-11-19 11:49] VITALS: BP 126/60; PULSE 98; RESP 18
[2018-11-19 16:00] VITALS: BP 108/71; PULSE 80; RESP 19
[2018-11-19 19:19] VITALS: BP 107/57; PULSE 82; RESP 18
[2018-11-20 00:04] VITALS: BP 110/59; PULSE 79; RESP 18
[2018-11-20] MEDS: ACCU-CHEK XX SCH (02:16)
[2018-11-20] MEDS: HYDROCODONE/APAP (5/325) TAB PO PRN ×4 (02:23→20:44)
[2018-11-20 04:22] VITALS: BP 124/68; PULSE 88; RESP 18
[2018-11-20] MEDS: traMADol 50 MG TAB PO PRN ×3 (04:46→23:46)
[2018-11-20] MEDS: LEVOTHYROXINE 125 MCG TAB PO SCH (05:32)
[2018-11-20 07:18] VITALS: BP 127/61; PULSE 75; RESP 19
[2018-11-20] MEDS: INSULIN ASPART [NOVOLOG] 3 ML PEN SC SCH ×4 (07:58→21:00)
[2018-11-20] MEDS: DOCUSATE SODIUM 100 MG CAP PO SCH ×2 (08:25→21:39)
[2018-11-20] MEDS: POLYETHYLENE GLYCOL 17 GM PACKET PO SCH (08:26)
[2018-11-20] MEDS: FLUCONAZOLE 200 MG TAB PO SCH (08:26)
[2018-11-20] MEDS: CEFEPIME 2GM/50 ML (PMX) 50 ML IVPB SCH ×2 (08:26→21:39)
[2018-11-20] MEDS: ZYVOX 600 MG TAB PO SCH ×2 (08:28→21:39)
[2018-11-20] MEDS: DAKINS 0.0125%(1/40) 473 ML SOLUTION TP SCH (08:28)
[2018-11-20] MEDS: NYSTATIN 30 GM POWDER BTL TOP SCH ×2 (08:28→21:41)
[2018-11-20] MEDS: BACLOFEN 10 MG TAB PO SCH ×3 (08:28→21:39)
[2018-11-20] MEDS: AMMONIUM LACTATE 12% 225 GM LOT TOP SCH (08:29)
[2018-11-20] MEDS: CLOTRIMAZOLE 1% 30 GM CR TOP SCH (08:29)
[2018-11-20 12:05] VITALS: BP 121/65; PULSE 89; RESP 18
[2018-11-20 16:16] VITALS: BP 123/64; PULSE 84; RESP 18
[2018-11-20] MEDS: FUROSEMIDE 40 MG INJ IV SCH (17:15)
[2018-11-20 20:12] VITALS: BP 98/57; PULSE 80; RESP 18
[2018-11-21] VITALS (7 sets, daily range): BP systolic 111–137; BP diastolic 56–75; PULSE 75–89; RESP 18–20
[2018-11-21] MEDS: HYDROCODONE/APAP (5/325) TAB PO PRN ×3 (01:26→17:56)
[2018-11-21] MEDS: ACCU-CHEK XX SCH (01:57)
[2018-11-21] MEDS: HYDROmorphONE 0.5 MG/0.5 ML SYG IV PRN (04:06)
[2018-11-21] MEDS: LEVOTHYROXINE 125 MCG TAB PO SCH (06:35)
[2018-11-21] MEDS: FUROSEMIDE 40 MG INJ IV SCH ×2 (06:36→17:19)
[2018-11-21] MEDS: CEFEPIME 2GM/50 ML (PMX) 50 ML IVPB SCH ×2 (08:32→20:43)
[2018-11-21] MEDS: ZYVOX 600 MG TAB PO SCH (08:32)
[2018-11-21] MEDS: DOCUSATE SODIUM 100 MG CAP PO SCH ×2 (08:33→20:43)
[2018-11-21] MEDS: POLYETHYLENE GLYCOL 17 GM PACKET PO SCH (08:33)
[2018-11-21] MEDS: BACLOFEN 10 MG TAB PO SCH ×3 (08:33→20:43)
[2018-11-21] MEDS: AMMONIUM LACTATE 12% 225 GM LOT TOP SCH (08:34)
[2018-11-21] MEDS: NYSTATIN 30 GM POWDER BTL TOP SCH ×2 (08:34→20:44)
[2018-11-21] MEDS: CLOTRIMAZOLE 1% 30 GM CR TOP SCH (08:34)
[2018-11-21] MEDS: INSULIN ASPART [NOVOLOG] 3 ML PEN SC SCH ×4 (08:45→21:00)
[2018-11-21] MEDS: traMADol 50 MG TAB PO PRN ×3 (09:36→20:42)
[2018-11-21] MEDS: FLUCONAZOLE 200 MG TAB PO SCH (09:36)
[2018-11-21] MEDS: SOD CHLORIDE 0.9% IVPB SCH (16:37)
[2018-11-21] MEDS: DAPTOMYCIN IVPB SCH (16:37)
[2018-11-21] MEDS ORDERED: CALCIUM CARBONATE 500 MG CHEW TAB PO PRN (17:00)
[2018-11-21] MEDS: FAMOTIDINE 20 MG TAB PO SCH (20:43)
[2018-11-22] VITALS (7 sets, daily range): BP systolic 103–115; BP diastolic 5–60; PULSE 70–88; RESP 18–19
[2018-11-22] MEDS: ACCU-CHEK XX SCH (02:00)
[2018-11-22] MEDS: HYDROCODONE/APAP (5/325) TAB PO PRN ×5 (02:06→23:26)
[2018-11-22] MEDS: LEVOTHYROXINE 125 MCG TAB PO SCH (05:15)
[2018-11-22] MEDS: FUROSEMIDE 40 MG INJ IV SCH ×2 (05:15→17:57)
[2018-11-22] MEDS: traMADol 50 MG TAB PO PRN ×2 (05:16→11:42)
[2018-11-22] MEDS: INSULIN ASPART [NOVOLOG] 3 ML PEN SC SCH ×4 (07:55→21:03)
[2018-11-22] MEDS: DOCUSATE SODIUM 100 MG CAP PO SCH ×2 (10:34→20:43)
[2018-11-22] MEDS: BACLOFEN 10 MG TAB PO SCH ×3 (10:34→20:42)
[2018-11-22] MEDS: FAMOTIDINE 20 MG TAB PO SCH ×2 (10:34→20:44)
[2018-11-22] MEDS: NYSTATIN 30 GM POWDER BTL TOP SCH ×2 (10:35→20:45)
[2018-11-22] MEDS: POLYETHYLENE GLYCOL 17 GM PACKET PO SCH (10:35)
[2018-11-22] MEDS: CLOTRIMAZOLE 1% 30 GM CR TOP SCH (10:36)
[2018-11-22] MEDS: AMMONIUM LACTATE 12% 225 GM LOT TOP SCH (10:36)
[2018-11-22] MEDS: FLUCONAZOLE 200 MG TAB PO SCH (10:40)
[2018-11-22] MEDS: CEFEPIME 2GM/50 ML (PMX) 50 ML IVPB SCH ×2 (10:40→20:42)
[2018-11-22] MEDS: DAPTOMYCIN IVPB SCH (17:02)
[2018-11-22] MEDS: SOD CHLORIDE 0.9% IVPB SCH (17:02)
[2018-11-22] MEDS: HYDROmorphONE 0.5 MG/0.5 ML SYG IV PRN (17:57)
[2018-11-23] MEDS: HYDROmorphONE 0.5 MG/0.5 ML SYG IV PRN (01:59)
[2018-11-23] MEDS: ACCU-CHEK XX SCH (02:10)
[2018-11-23 03:49] VITALS: BP 125/58; PULSE 79; RESP 18
[2018-11-23] MEDS: HYDROCODONE/APAP (5/325) TAB PO PRN ×2 (06:04→12:58)
[2018-11-23] MEDS: LEVOTHYROXINE 125 MCG TAB PO SCH (06:04)
[2018-11-23] MEDS: FUROSEMIDE 40 MG INJ IV SCH ×2 (06:05→17:40)
[2018-11-23 07:13] VITALS: BP 110/69; PULSE 80; RESP 19
[2018-11-23] MEDS: FAMOTIDINE 20 MG TAB PO SCH ×2 (08:20→20:55)
[2018-11-23] MEDS: FLUCONAZOLE 200 MG TAB PO SCH (08:20)
[2018-11-23] MEDS: BACLOFEN 10 MG TAB PO SCH ×3 (08:20→20:55)
[2018-11-23] MEDS: DOCUSATE SODIUM 100 MG CAP PO SCH ×2 (08:21→20:57)
[2018-11-23] MEDS: CLOTRIMAZOLE 1% 30 GM CR TOP SCH (08:22)
[2018-11-23] MEDS: NYSTATIN 30 GM POWDER BTL TOP SCH ×2 (08:22→21:01)
[2018-11-23] MEDS: POLYETHYLENE GLYCOL 17 GM PACKET PO SCH (08:22)
[2018-11-23] MEDS: AMMONIUM LACTATE 12% 225 GM LOT TOP SCH (08:24)
[2018-11-23] MEDS: INSULIN ASPART [NOVOLOG] 3 ML PEN SC SCH ×4 (08:29→21:33)
[2018-11-23] MEDS: traMADol 50 MG TAB PO PRN ×2 (08:36→16:49)
[2018-11-23] MEDS ORDERED: MAGNESIUM SULFATE 2 GM/50 ML 50 ML IVPB ONE (09:00)
[2018-11-23 11:12] VITALS: BP 111/77; PULSE 79; RESP 18
[2018-11-23] MEDS: CEFEPIME 2GM/50 ML (PMX) 50 ML IVPB SCH ×2 (11:25→20:55)
[2018-11-23 15:10] VITALS: BP 109/77; PULSE 69; RESP 18
[2018-11-23] MEDS: DAPTOMYCIN IVPB SCH (15:30)
[2018-11-23] MEDS: SOD CHLORIDE 0.9% IVPB SCH (15:30)
[2018-11-23 20:00] VITALS: BP 150/70; PULSE 69; RESP 19
[2018-11-23] MEDS ORDERED: HYDROmorphONE 0.5 MG/0.5 ML SYG IV STA (20:46)
[2018-11-24] VITALS: BP 101/51; PULSE 77; RESP 18
[2018-11-24] MEDS: HYDROCODONE/APAP (5/325) TAB PO PRN ×4 (01:45→21:12)
[2018-11-24] MEDS: ACCU-CHEK XX SCH (02:06)
[2018-11-24 03:56] VITALS: BP 134/64; PULSE 97; RESP 19
[2018-11-24] MEDS: traMADol 50 MG TAB PO PRN ×2 (05:33→11:53)
[2018-11-24] MEDS: LEVOTHYROXINE 125 MCG TAB PO SCH (05:33)
[2018-11-24] MEDS: FUROSEMIDE 40 MG INJ IV SCH ×2 (05:34→17:28)
[2018-11-24 07:36] VITALS: BP 109/53; PULSE 82; RESP 19
[2018-11-24] MEDS: INSULIN ASPART [NOVOLOG] 3 ML PEN SC SCH ×4 (07:40→21:00)
[2018-11-24] MEDS ORDERED: METOLAZONE 2.5 MG TAB PO ONE (08:00)
[2018-11-24] MEDS: BACLOFEN 10 MG TAB PO SCH ×3 (08:27→21:02)
[2018-11-24] MEDS: FLUCONAZOLE 200 MG TAB PO SCH (08:27)
[2018-11-24] MEDS: FAMOTIDINE 20 MG TAB PO SCH ×2 (08:27→21:02)
[2018-11-24] MEDS: CEFEPIME 2GM/50 ML (PMX) 50 ML IVPB SCH ×2 (08:30→21:01)
[2018-11-24] MEDS: NYSTATIN 30 GM POWDER BTL TOP SCH ×2 (08:33→21:12)
[2018-11-24] MEDS: CLOTRIMAZOLE 1% 30 GM CR TOP SCH (08:34)
[2018-11-24] MEDS: POLYETHYLENE GLYCOL 17 GM PACKET PO SCH (08:35)
[2018-11-24] MEDS: AMMONIUM LACTATE 12% 225 GM LOT TOP SCH (08:35)
[2018-11-24] MEDS: DOCUSATE SODIUM 100 MG CAP PO SCH ×2 (08:35→21:00)
[2018-11-24 15:29] VITALS: BP 124/69; PULSE 79; RESP 18
[2018-11-24] MEDS: DAPTOMYCIN IVPB SCH (16:51)
[2018-11-24] MEDS: SOD CHLORIDE 0.9% IVPB SCH (16:51)
[2018-11-24 19:48] VITALS: BP 104/56; PULSE 73; RESP 18
[2018-11-25] VITALS: BP 104/57; PULSE 76; RESP 19
[2018-11-25] MEDS: ACCU-CHEK XX SCH (02:00)
[2018-11-25] MEDS: HYDROCODONE/APAP (5/325) TAB PO PRN ×4 (03:36→22:55)
[2018-11-25 04:00] VITALS: BP 113/54; PULSE 68; RESP 18
[2018-11-25] MEDS: LEVOTHYROXINE 125 MCG TAB PO SCH (05:52)
[2018-11-25] MEDS: FUROSEMIDE 40 MG INJ IV SCH ×2 (05:52→17:41)
[2018-11-25] MEDS ORDERED: METOLAZONE 5 MG TAB PO ONE (07:00)
[2018-11-25 07:13] VITALS: BP 116/70; PULSE 76; RESP 19
[2018-11-25] MEDS: POLYETHYLENE GLYCOL 17 GM PACKET PO SCH (08:12)
[2018-11-25] MEDS: DOCUSATE SODIUM 100 MG CAP PO SCH ×2 (08:12→21:00)
[2018-11-25] MEDS: AMMONIUM LACTATE 12% 225 GM LOT TOP SCH ×2 (08:12→09:00)
[2018-11-25] MEDS: FAMOTIDINE 20 MG TAB PO SCH ×2 (08:13→21:05)
[2018-11-25] MEDS: BACLOFEN 10 MG TAB PO SCH ×3 (08:13→21:06)
[2018-11-25] MEDS: CEFEPIME 2GM/50 ML (PMX) 50 ML IVPB SCH ×2 (08:21→22:07)
[2018-11-25] MEDS: FLUCONAZOLE 200 MG TAB PO SCH (08:21)
[2018-11-25] MEDS: CLOTRIMAZOLE 1% 30 GM CR TOP SCH (08:25)
[2018-11-25] MEDS: NYSTATIN 30 GM POWDER BTL TOP SCH ×2 (08:25→21:07)
[2018-11-25] MEDS: INSULIN ASPART [NOVOLOG] 3 ML PEN SC SCH ×4 (08:29→21:17)
[2018-11-25 11:05] VITALS: BP 111/53; PULSE 69; RESP 18
[2018-11-25] MEDS: traMADol 50 MG TAB PO PRN (11:37)
[2018-11-25 13:26] VITALS: BP 107/58; PULSE 81; RESP 18
[2018-11-25] MEDS: DAPTOMYCIN IVPB SCH (18:41)
[2018-11-25] MEDS: SOD CHLORIDE 0.9% IVPB SCH (18:41)
[2018-11-25 20:06] VITALS: BP 124/56; PULSE 88; RESP 20
[2018-11-25] MEDS: ALTEPLASE (CATHFLO) 2 MG INJ CATHETER PRN (22:55)
[2018-11-26] MEDS: traMADol 50 MG TAB PO PRN ×2 (01:24→10:05)
[2018-11-26 02:01] VITALS: BP 102/51; PULSE 81; RESP 18
[2018-11-26] MEDS: ACCU-CHEK XX SCH (02:44)
[2018-11-26] MEDS: FUROSEMIDE 40 MG INJ IV SCH ×2 (06:09→18:02)
[2018-11-26] MEDS: HYDROCODONE/APAP (5/325) TAB PO PRN ×4 (06:09→23:52)
[2018-11-26] MEDS: LEVOTHYROXINE 125 MCG TAB PO SCH (06:09)
[2018-11-26] MEDS ORDERED: METOLAZONE 5 MG TAB PO ONE (08:00)
[2018-11-26 08:36] VITALS: BP 109/56; PULSE 77; RESP 19
[2018-11-26] MEDS: INSULIN ASPART [NOVOLOG] 3 ML PEN SC SCH ×4 (08:42→20:48)
[2018-11-26] MEDS: CLOTRIMAZOLE 1% 30 GM CR TOP SCH (08:42)
[2018-11-26] MEDS: AMMONIUM LACTATE 12% 225 GM LOT TOP SCH (08:42)
[2018-11-26] MEDS: NYSTATIN 30 GM POWDER BTL TOP SCH ×2 (08:42→20:28)
[2018-11-26] MEDS: BACLOFEN 10 MG TAB PO SCH ×3 (08:43→20:25)
[2018-11-26] MEDS: FLUCONAZOLE 200 MG TAB PO SCH (08:43)
[2018-11-26] MEDS: POLYETHYLENE GLYCOL 17 GM PACKET PO SCH (08:43)
[2018-11-26] MEDS: DOCUSATE SODIUM 100 MG CAP PO SCH ×2 (08:43→20:29)
[2018-11-26] MEDS: FAMOTIDINE 20 MG TAB PO SCH ×2 (08:43→20:26)
[2018-11-26] MEDS: CEFEPIME 2GM/50 ML (PMX) 50 ML IVPB SCH ×2 (08:44→20:24)
[2018-11-26] MEDS: DICLOFENAC SODIUM 1% GEL 100 GM TUBE TP SCH ×4 (12:32→20:28)
[2018-11-26 14:30] VITALS: BP 102/59; PULSE 85; RESP 19
[2018-11-26] MEDS: SOD CHLORIDE 0.9% IVPB SCH (15:19)
[2018-11-26] MEDS: DAPTOMYCIN IVPB SCH (15:19)
[2018-11-26 19:34] VITALS: BP 114/56; PULSE 86; RESP 18
[2018-11-26] MEDS ORDERED: INSULIN ASPART [NOVOLOG] 3 ML PEN SC ONE ×2 (21:13→21:51)
[2018-11-26] MEDS ORDERED: ACCU-CHEK XX ONE ×2 (21:30→22:00)
[2018-11-27 01:28] VITALS: BP 117/58; PULSE 73; RESP 18
[2018-11-27] MEDS: ACCU-CHEK XX SCH (01:39)
[2018-11-27] MEDS: HYDROCODONE/APAP (5/325) TAB PO PRN ×3 (03:58→20:38)
[2018-11-27 05:13] VITALS: BP 116/56; PULSE 67
[2018-11-27] MEDS: FUROSEMIDE 40 MG INJ IV SCH ×2 (05:14→17:39)
[2018-11-27] MEDS: LEVOTHYROXINE 125 MCG TAB PO SCH (05:14)
[2018-11-27] MEDS: traMADol 50 MG TAB PO PRN ×2 (05:14→12:24)
[2018-11-27 07:32] VITALS: BP 100/60; PULSE 74; RESP 19
[2018-11-27] MEDS: FAMOTIDINE 20 MG TAB PO SCH ×2 (08:19→21:55)
[2018-11-27] MEDS: CEFEPIME 2GM/50 ML (PMX) 50 ML IVPB SCH ×2 (08:19→21:57)
[2018-11-27] MEDS: FLUCONAZOLE 200 MG TAB PO SCH (08:20)
[2018-11-27] MEDS: BACLOFEN 10 MG TAB PO SCH ×3 (08:20→21:56)
[2018-11-27] MEDS: DICLOFENAC SODIUM 1% GEL 100 GM TUBE TP SCH ×4 (08:20→21:58)
[2018-11-27] MEDS: DOCUSATE SODIUM 100 MG CAP PO SCH ×2 (08:20→21:56)
[2018-11-27] MEDS: AMMONIUM LACTATE 12% 225 GM LOT TOP SCH (08:20)
[2018-11-27] MEDS: NYSTATIN 30 GM POWDER BTL TOP SCH ×2 (08:22→21:58)
[2018-11-27] MEDS: CLOTRIMAZOLE 1% 30 GM CR TOP SCH (08:23)
[2018-11-27] MEDS: INSULIN ASPART [NOVOLOG] 3 ML PEN SC SCH ×4 (08:33→21:55)
[2018-11-27] MEDS: POLYETHYLENE GLYCOL 17 GM PACKET PO SCH (09:00)
[2018-11-27] MEDS: ALTEPLASE (CATHFLO) 2 MG INJ CATHETER PRN (10:59)
[2018-11-27 14:02] VITALS: BP 125/59; PULSE 81; RESP 19
[2018-11-27] MEDS: SOD CHLORIDE 0.9% IVPB SCH (16:13)
[2018-11-27] MEDS: DAPTOMYCIN IVPB SCH (16:13)
[2018-11-27] MEDS ORDERED: LIDOCAINE 1% (MPF) 5 ML VIAL SC ONE (17:00)
[2018-11-27 19:46] VITALS: BP 117/64; PULSE 68; RESP 17
[2018-11-28 01:26] VITALS: BP 108/55; PULSE 74; RESP 16
[2018-11-28] MEDS: HYDROCODONE/APAP (5/325) TAB PO PRN ×4 (02:32→22:51)
[2018-11-28] MEDS: ACCU-CHEK XX SCH (02:34)
[2018-11-28] MEDS: FUROSEMIDE 40 MG INJ IV SCH (06:00)
[2018-11-28] MEDS: LEVOTHYROXINE 125 MCG TAB PO SCH (06:08)
[2018-11-28 07:52] VITALS: BP 102/52; PULSE 70; RESP 19
[2018-11-28] MEDS: BACLOFEN 10 MG TAB PO SCH ×3 (08:22→21:05)
[2018-11-28] MEDS: FLUCONAZOLE 200 MG TAB PO SCH (08:22)
[2018-11-28] MEDS: DOCUSATE SODIUM 100 MG CAP PO SCH ×2 (08:22→21:05)
[2018-11-28] MEDS: CLOTRIMAZOLE 1% 30 GM CR TOP SCH (08:24)
[2018-11-28] MEDS: DICLOFENAC SODIUM 1% GEL 100 GM TUBE TP SCH ×4 (08:24→21:06)
[2018-11-28] MEDS: NYSTATIN 30 GM POWDER BTL TOP SCH ×2 (08:24→21:06)
[2018-11-28] MEDS: FAMOTIDINE 20 MG TAB PO SCH ×2 (08:24→21:05)
[2018-11-28] MEDS: AMMONIUM LACTATE 12% 225 GM LOT TOP SCH (08:24)
[2018-11-28] MEDS: POLYETHYLENE GLYCOL 17 GM PACKET PO SCH (09:00)
[2018-11-28] MEDS: INSULIN ASPART [NOVOLOG] 3 ML PEN SC SCH ×4 (09:16→21:18)
[2018-11-28] MEDS: CEFEPIME 2GM/50 ML (PMX) 50 ML IVPB SCH ×2 (12:23→20:57)
[2018-11-28 14:11] VITALS: BP 122/72; PULSE 67; RESP 20
[2018-11-28] MEDS: DAPTOMYCIN IVPB SCH (15:45)
[2018-11-28] MEDS: SOD CHLORIDE 0.9% IVPB SCH (15:45)
[2018-11-28 20:04] VITALS: BP 123/70; PULSE 87; RESP 20
[2018-11-29 01:41] VITALS: BP 106/58; PULSE 73; RESP 20
[2018-11-29] MEDS: ACCU-CHEK XX SCH (01:59)
[2018-11-29] MEDS: HYDROCODONE/APAP (5/325) TAB PO PRN ×3 (04:24→13:23)
[2018-11-29] MEDS: LEVOTHYROXINE 125 MCG TAB PO SCH (05:41)
[2018-11-29 07:56] VITALS: BP 106/54; PULSE 76; RESP 20
[2018-11-29] MEDS: INSULIN ASPART [NOVOLOG] 3 ML PEN SC SCH ×4 (08:37→20:56)
[2018-11-29] MEDS: DOCUSATE SODIUM 100 MG CAP PO SCH ×2 (08:38→20:53)
[2018-11-29] MEDS: FLUCONAZOLE 200 MG TAB PO SCH (08:38)
[2018-11-29] MEDS: FAMOTIDINE 20 MG TAB PO SCH ×2 (08:38→20:53)
[2018-11-29] MEDS: BACLOFEN 10 MG TAB PO SCH ×3 (08:40→20:53)
[2018-11-29] MEDS: AMMONIUM LACTATE 12% 225 GM LOT TOP SCH (08:41)
[2018-11-29] MEDS: NYSTATIN 30 GM POWDER BTL TOP SCH ×2 (08:41→20:54)
[2018-11-29] MEDS: FUROSEMIDE 40 MG INJ IV SCH (08:41)
[2018-11-29] MEDS: DICLOFENAC SODIUM 1% GEL 100 GM TUBE TP SCH ×4 (08:42→20:54)
[2018-11-29] MEDS: CLOTRIMAZOLE 1% 30 GM CR TOP SCH (08:42)
[2018-11-29] MEDS: POLYETHYLENE GLYCOL 17 GM PACKET PO SCH (09:00)
[2018-11-29] MEDS: CEFEPIME 2GM/50 ML (PMX) 50 ML IVPB SCH ×2 (09:00→20:53)
[2018-11-29] MEDS: ONDANSETRON 4 MG INJ IV PRN (09:25)
[2018-11-29] MEDS: SENNA TAB PO SCH (11:09)
[2018-11-29] MEDS: SOD CHLORIDE 0.9% IVPB SCH (15:45)
[2018-11-29] MEDS: DAPTOMYCIN IVPB SCH (15:45)
[2018-11-29 16:25] VITALS: BP 98/55; PULSE 75; RESP 20
[2018-11-29 19:45] VITALS: BP 102/50; PULSE 81; RESP 18
[2018-11-30] MEDS: ACCU-CHEK XX SCH (02:00)
[2018-11-30 02:18] VITALS: BP 98/50; PULSE 83; RESP 18
[2018-11-30] MEDS: HYDROCODONE/APAP (5/325) TAB PO PRN ×2 (02:33→10:53)
[2018-11-30] MEDS: LEVOTHYROXINE 125 MCG TAB PO SCH (06:03)
[2018-11-30 08:22] VITALS: BP 101/56; PULSE 69; RESP 16
[2018-11-30] MEDS: CEFEPIME 2GM/50 ML (PMX) 50 ML IVPB SCH ×2 (08:29→21:13)
[2018-11-30] MEDS: DOCUSATE SODIUM 100 MG CAP PO SCH ×2 (08:30→21:09)
[2018-11-30] MEDS: SENNA TAB PO SCH (08:30)
[2018-11-30] MEDS: FUROSEMIDE 40 MG INJ IV SCH (08:30)
[2018-11-30] MEDS: FLUCONAZOLE 200 MG TAB PO SCH (08:31)
[2018-11-30] MEDS: FAMOTIDINE 20 MG TAB PO SCH ×2 (08:31→21:09)
[2018-11-30] MEDS: BACLOFEN 10 MG TAB PO SCH ×3 (08:31→21:10)
[2018-11-30] MEDS: INSULIN ASPART [NOVOLOG] 3 ML PEN SC SCH ×4 (08:37→21:00)
[2018-11-30] MEDS: AMMONIUM LACTATE 12% 225 GM LOT TOP SCH (08:39)
[2018-11-30] MEDS: CLOTRIMAZOLE 1% 30 GM CR TOP SCH (08:39)
[2018-11-30] MEDS: NYSTATIN 30 GM POWDER BTL TOP SCH ×2 (08:40→21:12)
[2018-11-30] MEDS: DICLOFENAC SODIUM 1% GEL 100 GM TUBE TP SCH ×4 (08:40→21:12)
[2018-11-30] MEDS ORDERED: CEPASTAT LOZENGE MT PRN (11:30)
[2018-11-30 14:26] VITALS: BP 102/59; PULSE 77; RESP 16
[2018-11-30] MEDS: DAPTOMYCIN IVPB SCH (18:06)
[2018-11-30] MEDS: SOD CHLORIDE 0.9% IVPB SCH (18:06)
[2018-11-30 19:36] VITALS: BP 112/53; PULSE 64; RESP 18
[2018-12-01] VITALS (13 sets, daily range): BP systolic 104–136; BP diastolic 54–71; PULSE 60–79; RESP 16–20
[2018-12-01] MEDS: ACCU-CHEK XX SCH (01:29)
[2018-12-01] MEDS: HYDROCODONE/APAP (5/325) TAB PO PRN ×2 (04:13→21:34)
[2018-12-01] MEDS: LEVOTHYROXINE 125 MCG TAB PO SCH (06:01)
[2018-12-01] MEDS: INSULIN ASPART [NOVOLOG] 3 ML PEN SC SCH ×4 (08:36→21:11)
[2018-12-01] MEDS: FAMOTIDINE 20 MG TAB PO SCH ×2 (08:38→21:02)
[2018-12-01] MEDS: BACLOFEN 10 MG TAB PO SCH ×3 (08:38→21:02)
[2018-12-01] MEDS: DOCUSATE SODIUM 100 MG CAP PO SCH ×2 (08:38→21:02)
[2018-12-01] MEDS: SENNA TAB PO SCH (08:38)
[2018-12-01] MEDS: FLUCONAZOLE 200 MG TAB PO SCH (08:38)
[2018-12-01] MEDS ORDERED: FUROSEMIDE 20 MG INJ IV SCH (09:00)
[2018-12-01] MEDS: CEFEPIME 2GM/50 ML (PMX) 50 ML IVPB SCH ×2 (09:50→21:22)
[2018-12-01] MEDS: CLOTRIMAZOLE 1% 30 GM CR TOP SCH (12:50)
[2018-12-01] MEDS: DICLOFENAC SODIUM 1% GEL 100 GM TUBE TP SCH ×4 (12:50→21:11)
[2018-12-01] MEDS: NYSTATIN 30 GM POWDER BTL TOP SCH ×2 (12:50→21:12)
[2018-12-01] MEDS: AMMONIUM LACTATE 12% 225 GM LOT TOP SCH (12:50)
[2018-12-01] MEDS: DAKINS 0.0125%(1/40) 473 ML SOLUTION TP SCH (13:47)
[2018-12-01] MEDS: DAPTOMYCIN IVPB SCH (16:14)
[2018-12-01] MEDS: SOD CHLORIDE 0.9% IVPB SCH (16:14)
[2018-12-02] MEDS: HYDROCODONE/APAP (5/325) TAB PO PRN ×4 (01:34→18:15)
[2018-12-02] MEDS: ACCU-CHEK XX SCH (02:00)
[2018-12-02 02:20] VITALS: BP 113/57; PULSE 70; RESP 17
[2018-12-02] MEDS: LEVOTHYROXINE 125 MCG TAB PO SCH (06:12)
[2018-12-02 07:43] VITALS: BP 129/71; PULSE 66; RESP 17
[2018-12-02] MEDS: INSULIN ASPART [NOVOLOG] 3 ML PEN SC SCH ×4 (08:00→20:57)
[2018-12-02] MEDS: BACLOFEN 10 MG TAB PO SCH ×3 (08:24→20:55)
[2018-12-02] MEDS: SENNA TAB PO SCH (08:24)
[2018-12-02] MEDS: FAMOTIDINE 20 MG TAB PO SCH ×2 (08:24→20:55)
[2018-12-02] MEDS: DOCUSATE SODIUM 100 MG CAP PO SCH ×2 (08:25→20:55)
[2018-12-02] MEDS: FLUCONAZOLE 200 MG TAB PO SCH (08:25)
[2018-12-02] MEDS: DICLOFENAC SODIUM 1% GEL 100 GM TUBE TP SCH ×4 (08:26→21:08)
[2018-12-02] MEDS: NYSTATIN 30 GM POWDER BTL TOP SCH ×2 (08:26→21:08)
[2018-12-02] MEDS: FUROSEMIDE 40 MG TAB PO SCH (08:26)
[2018-12-02] MEDS: CLOTRIMAZOLE 1% 30 GM CR TOP SCH (08:26)
[2018-12-02] MEDS: DAKINS 0.0125%(1/40) 473 ML SOLUTION TP SCH (08:27)
[2018-12-02] MEDS: CEFEPIME 2GM/50 ML (PMX) 50 ML IVPB SCH ×2 (08:30→20:55)
[2018-12-02] MEDS: AMMONIUM LACTATE 12% 225 GM LOT TOP SCH (08:31)
[2018-12-02 15:34] VITALS: BP 121/62; PULSE 82; RESP 16
[2018-12-02] MEDS: DAPTOMYCIN IVPB SCH (17:09)
[2018-12-02] MEDS: SOD CHLORIDE 0.9% IVPB SCH (17:09)
[2018-12-02 20:01] VITALS: BP 119/57; PULSE 70; RESP 18
[2018-12-03 01:41] VITALS: BP 113/56; PULSE 65; RESP 16
[2018-12-03] MEDS: ACCU-CHEK XX SCH (02:00)
[2018-12-03] MEDS: LEVOTHYROXINE 125 MCG TAB PO SCH (06:15)
[2018-12-03 07:33] VITALS: BP 138/64; PULSE 68; RESP 19
[2018-12-03 07:37] VITALS: BP 112/69; PULSE 58; RESP 15
[2018-12-03] MEDS: INSULIN ASPART [NOVOLOG] 3 ML PEN SC SCH ×4 (08:00→21:00)
[2018-12-03] MEDS: NYSTATIN 30 GM POWDER BTL TOP SCH ×2 (09:28→21:06)
[2018-12-03] MEDS: DICLOFENAC SODIUM 1% GEL 100 GM TUBE TP SCH ×4 (09:28→21:06)
[2018-12-03] MEDS: CEFEPIME 2GM/50 ML (PMX) 50 ML IVPB SCH ×2 (09:28→21:01)
[2018-12-03] MEDS: CLOTRIMAZOLE 1% 30 GM CR TOP SCH (09:29)
[2018-12-03] MEDS: AMMONIUM LACTATE 12% 225 GM LOT TOP SCH (09:29)
[2018-12-03] MEDS: DOCUSATE SODIUM 100 MG CAP PO SCH ×2 (09:30→21:04)
[2018-12-03] MEDS: FAMOTIDINE 20 MG TAB PO SCH ×2 (09:30→21:04)
[2018-12-03] MEDS: SENNA TAB PO SCH (09:30)
[2018-12-03] MEDS: FUROSEMIDE 40 MG TAB PO SCH (09:31)
[2018-12-03] MEDS: BACLOFEN 10 MG TAB PO SCH ×3 (09:32→21:03)
[2018-12-03] MEDS: FLUCONAZOLE 200 MG TAB PO SCH (09:32)
[2018-12-03] MEDS: DAKINS 0.0125%(1/40) 473 ML SOLUTION TP SCH (09:33)
[2018-12-03] MEDS: SUCRALFATE (100 MG/ML) 10ML CUP PO SCH ×3 (12:41→21:04)
[2018-12-03 15:05] VITALS: BP 121/56; PULSE 67; RESP 16
[2018-12-03] MEDS: SOD CHLORIDE 0.9% IVPB SCH (17:15)
[2018-12-03] MEDS: DAPTOMYCIN IVPB SCH (17:15)
[2018-12-03 19:43] VITALS: BP 125/59; PULSE 58; RESP 18
[2018-12-04] MEDS: HYDROCODONE/APAP (5/325) TAB PO PRN ×3 (01:23→20:05)
[2018-12-04] MEDS: ACCU-CHEK XX SCH (01:54)
[2018-12-04 03:13] VITALS: BP 106/55; PULSE 74; RESP 18
[2018-12-04] MEDS: LEVOTHYROXINE 125 MCG TAB PO SCH (06:28)
[2018-12-04 07:31] VITALS: BP 102/50; PULSE 66; RESP 16
[2018-12-04] MEDS: INSULIN ASPART [NOVOLOG] 3 ML PEN SC SCH ×4 (08:00→20:18)
[2018-12-04] MEDS ORDERED: FUROSEMIDE 20 MG TAB PO SCH (09:00)
[2018-12-04] MEDS: DOCUSATE SODIUM 100 MG CAP PO SCH ×2 (09:10→20:07)
[2018-12-04] MEDS: FLUCONAZOLE 200 MG TAB PO SCH (09:10)
[2018-12-04] MEDS: FAMOTIDINE 20 MG TAB PO SCH ×2 (09:11→20:08)
[2018-12-04] MEDS: BACLOFEN 10 MG TAB PO SCH ×3 (09:11→20:07)
[2018-12-04] MEDS: SUCRALFATE (100 MG/ML) 10ML CUP PO SCH ×4 (09:12→20:04)
[2018-12-04] MEDS: SENNA TAB PO SCH (09:12)
[2018-12-04] MEDS: CEFEPIME 2GM/50 ML (PMX) 50 ML IVPB SCH ×2 (09:12→20:04)
[2018-12-04] MEDS: NYSTATIN 30 GM POWDER BTL TOP SCH ×2 (09:13→20:08)
[2018-12-04] MEDS: DICLOFENAC SODIUM 1% GEL 100 GM TUBE TP SCH ×4 (09:13→20:08)
[2018-12-04] MEDS: AMMONIUM LACTATE 12% 225 GM LOT TOP SCH (09:14)
[2018-12-04] MEDS: DAKINS 0.0125%(1/40) 473 ML SOLUTION TP SCH (09:14)
[2018-12-04] MEDS: CLOTRIMAZOLE 1% 30 GM CR TOP SCH (09:16)
[2018-12-04 15:11] VITALS: BP 127/61; PULSE 77; RESP 18
[2018-12-04] MEDS: DAPTOMYCIN IVPB SCH (17:15)
[2018-12-04] MEDS: SOD CHLORIDE 0.9% IVPB SCH (17:15)
[2018-12-04 19:29] VITALS: BP 104/51; PULSE 72; RESP 18
[2018-12-05] MEDS: ACCU-CHEK XX SCH (01:08)
[2018-12-05] MEDS: HYDROCODONE/APAP (5/325) TAB PO PRN (01:13)
[2018-12-05 01:22] VITALS: BP 116/56; PULSE 71; RESP 18
[2018-12-05] MEDS: LEVOTHYROXINE 125 MCG TAB PO SCH (05:26)
[2018-12-05] MEDS: INSULIN ASPART [NOVOLOG] 3 ML PEN SC SCH ×4 (08:00→21:00)
[2018-12-05 08:05] VITALS: BP 106/59; PULSE 72; RESP 18
[2018-12-05] MEDS: SUCRALFATE (100 MG/ML) 10ML CUP PO SCH ×4 (08:33→22:22)
[2018-12-05] MEDS: ONDANSETRON 4 MG INJ IV PRN (08:33)
[2018-12-05] MEDS: DOCUSATE SODIUM 100 MG CAP PO SCH ×2 (08:33→22:18)
[2018-12-05] MEDS: BACLOFEN 10 MG TAB PO SCH ×3 (08:37→22:19)
[2018-12-05] MEDS: SENNA TAB PO SCH (08:37)
[2018-12-05] MEDS: FAMOTIDINE 20 MG TAB PO SCH ×2 (08:37→22:18)
[2018-12-05] MEDS: NYSTATIN 30 GM POWDER BTL TOP SCH ×2 (08:38→22:24)
[2018-12-05] MEDS: FLUCONAZOLE 200 MG TAB PO SCH (08:38)
[2018-12-05] MEDS: DICLOFENAC SODIUM 1% GEL 100 GM TUBE TP SCH ×4 (08:38→22:24)
[2018-12-05] MEDS: CLOTRIMAZOLE 1% 30 GM CR TOP SCH (08:44)
[2018-12-05] MEDS: DAKINS 0.0125%(1/40) 473 ML SOLUTION TP SCH (08:47)
[2018-12-05] MEDS: AMMONIUM LACTATE 12% 225 GM LOT TOP SCH (08:47)
[2018-12-05] MEDS: ALTEPLASE (CATHFLO) 2 MG INJ CATHETER PRN ×2 (10:09→13:54)
[2018-12-05] MEDS: CEFEPIME 2GM/50 ML (PMX) 50 ML IVPB SCH ×2 (11:06→22:30)
[2018-12-05 13:26] VITALS: BP 119/55; PULSE 72
[2018-12-05] MEDS: SOD CHLORIDE 0.9% IVPB SCH (16:24)
[2018-12-05] MEDS: DAPTOMYCIN IVPB SCH (16:24)
[2018-12-05 19:39] VITALS: BP 115/58; PULSE 60; RESP 18
[2018-12-06] MEDS: ACCU-CHEK XX SCH (01:17)
[2018-12-06 01:34] VITALS: BP 131/64; PULSE 71; RESP 18
[2018-12-06] MEDS: LEVOTHYROXINE 125 MCG TAB PO SCH (05:13)
[2018-12-06] MEDS: HYDROCODONE/APAP (5/325) TAB PO PRN (05:13)
[2018-12-06 07:32] VITALS: BP 120/56; PULSE 78; RESP 18
[2018-12-06] MEDS: CEFEPIME 2GM/50 ML (PMX) 50 ML IVPB SCH ×2 (08:45→21:35)
[2018-12-06] MEDS: FAMOTIDINE 20 MG TAB PO SCH ×2 (08:46→21:39)
[2018-12-06] MEDS: DOCUSATE SODIUM 100 MG CAP PO SCH ×2 (08:46→21:38)
[2018-12-06] MEDS: FLUCONAZOLE 200 MG TAB PO SCH (08:46)
[2018-12-06] MEDS: SUCRALFATE (100 MG/ML) 10ML CUP PO SCH ×4 (08:46→21:38)
[2018-12-06] MEDS: BACLOFEN 10 MG TAB PO SCH ×3 (08:46→21:38)
[2018-12-06] MEDS: SENNA TAB PO SCH (08:46)
[2018-12-06] MEDS: NYSTATIN 30 GM POWDER BTL TOP SCH ×2 (08:50→21:40)
[2018-12-06] MEDS: DAKINS 0.0125%(1/40) 473 ML SOLUTION TP SCH (08:50)
[2018-12-06] MEDS: CLOTRIMAZOLE 1% 30 GM CR TOP SCH (08:51)
[2018-12-06] MEDS: DICLOFENAC SODIUM 1% GEL 100 GM TUBE TP SCH ×4 (08:51→21:40)
[2018-12-06] MEDS: INSULIN ASPART [NOVOLOG] 3 ML PEN SC SCH ×4 (08:53→21:00)
[2018-12-06] MEDS: AMMONIUM LACTATE 12% 225 GM LOT TOP SCH (08:59)
[2018-12-06 14:43] VITALS: BP 128/60; PULSE 75; RESP 18
[2018-12-06] MEDS ORDERED: LORAZEPAM 2 MG INJ IV STA ×2 (16:04→16:05)
[2018-12-06] MEDS: SOD CHLORIDE 0.9% IVPB SCH (18:38)
[2018-12-06] MEDS: DAPTOMYCIN IVPB SCH (18:38)
[2018-12-06 19:36] VITALS: BP_SYST 126; BP_SYST 89; BP_DIAS 48; BP_DIAS 60; PULSE 73; PULSE 75; RESP 18
[2018-12-07 01:14] VITALS: BP 143/61; PULSE 90; RESP 17
[2018-12-07] MEDS: ACCU-CHEK XX SCH (01:59)
[2018-12-07] MEDS: HYDROCODONE/APAP (5/325) TAB PO PRN (03:33)
[2018-12-07] MEDS: LEVOTHYROXINE 125 MCG TAB PO SCH (07:15)
[2018-12-07 08:04] VITALS: BP 137/62; PULSE 96; RESP 19
[2018-12-07] MEDS ORDERED: POTASSIUM CHLORIDE (SR) 20 MEQ TAB PO STA (08:39)
[2018-12-07] MEDS: SENNA TAB PO SCH (08:44)
[2018-12-07] MEDS: SUCRALFATE (100 MG/ML) 10ML CUP PO SCH ×4 (08:44→21:31)
[2018-12-07] MEDS: BACLOFEN 10 MG TAB PO SCH ×3 (08:45→21:30)
[2018-12-07] MEDS: FLUCONAZOLE 200 MG TAB PO SCH (08:45)
[2018-12-07] MEDS: DOCUSATE SODIUM 100 MG CAP PO SCH ×2 (08:45→21:30)
[2018-12-07] MEDS: FAMOTIDINE 20 MG TAB PO SCH ×2 (08:45→21:32)
[2018-12-07] MEDS: CLOTRIMAZOLE 1% 30 GM CR TOP SCH (08:46)
[2018-12-07] MEDS: CEFEPIME 2GM/50 ML (PMX) 50 ML IVPB SCH (08:46)
[2018-12-07] MEDS: DICLOFENAC SODIUM 1% GEL 100 GM TUBE TP SCH ×7 (08:46→21:38)
[2018-12-07] MEDS: AMMONIUM LACTATE 12% 225 GM LOT TOP SCH (08:47)
[2018-12-07] MEDS: NYSTATIN 30 GM POWDER BTL TOP SCH ×2 (08:47→21:37)
[2018-12-07] MEDS: DAKINS 0.0125%(1/40) 473 ML SOLUTION TP SCH (08:48)
[2018-12-07] MEDS: INSULIN ASPART [NOVOLOG] 3 ML PEN SC SCH ×4 (08:51→21:00)
[2018-12-07] MEDS: OXYCODONE/ACETAMINOPHEN (5/325) TAB PO PRN (11:51)
[2018-12-07] MEDS ORDERED: POTASSIUM CHLORIDE (SR) 20 MEQ TAB PO SCH (12:00)
[2018-12-07 15:29] VITALS: BP 135/62; PULSE 78; RESP 19
[2018-12-07] MEDS ORDERED: DAPTOMYCIN 800 MG in SOD CHLORIDE 0.9% 100 ML IVPB SCH (16:00)
[2018-12-07] MEDS ORDERED: LORAZEPAM 2 MG INJ IV STA (16:23)
[2018-12-07] MEDS: DAPTOMYCIN 800 MG in SOD CHLORIDE 0.9% 100 ML IVPB SCH (17:59)
[2018-12-07] MEDS: HEPARIN 5,000 UNIT/1 ML VIAL SC SCH (21:54)
[2018-12-08] MEDS: OXYCODONE/ACETAMINOPHEN (5/325) TAB PO PRN (01:07)
[2018-12-08 01:34] VITALS: BP 123/79; PULSE 90; RESP 18
[2018-12-08] MEDS: LEVOTHYROXINE 125 MCG TAB PO SCH (05:44)
[2018-12-08 07:45] VITALS: BP 134/66; PULSE 89; RESP 20
[2018-12-08] MEDS: INSULIN ASPART [NOVOLOG] 3 ML PEN SC SCH ×4 (08:35→21:01)
[2018-12-08] MEDS: BACLOFEN 10 MG TAB PO SCH ×3 (09:28→20:52)
[2018-12-08] MEDS: SENNA TAB PO SCH (09:28)
[2018-12-08] MEDS: FLUCONAZOLE 200 MG TAB PO SCH (09:28)
[2018-12-08] MEDS: FAMOTIDINE 20 MG TAB PO SCH ×2 (09:29→20:52)
[2018-12-08] MEDS: DOCUSATE SODIUM 100 MG CAP PO SCH ×2 (09:29→20:52)
[2018-12-08] MEDS: SUCRALFATE (100 MG/ML) 10ML CUP PO SCH ×4 (09:30→20:52)
[2018-12-08] MEDS: HEPARIN 5,000 UNIT/1 ML VIAL SC SCH (09:32)
[2018-12-08] MEDS: DICLOFENAC SODIUM 1% GEL 100 GM TUBE TP SCH ×6 (09:32→20:55)
[2018-12-08] MEDS: NYSTATIN 30 GM POWDER BTL TOP SCH ×2 (09:32→20:55)
[2018-12-08] MEDS: CLOTRIMAZOLE 1% 30 GM CR TOP SCH (09:33)
[2018-12-08] MEDS: AMMONIUM LACTATE 12% 225 GM LOT TOP SCH (09:34)
[2018-12-08] MEDS: DAKINS 0.0125%(1/40) 473 ML SOLUTION TP SCH (09:34)
[2018-12-08] MEDS: ALTEPLASE (CATHFLO) 2 MG INJ CATHETER PRN (10:14)
[2018-12-08] MEDS: CEFEPIME 2GM/50 ML (PMX) 50 ML IVPB SCH (11:03)
[2018-12-08] MEDS: CIPROFLOXACIN 500 MG TAB PO SCH (12:20)
[2018-12-08] MEDS ORDERED: SENNA/DOCUSATE NA (8.6MG/50MG) TAB PO PRN (14:00)
[2018-12-08] MEDS ORDERED: MAGNESIUM OXIDE 400 MG TAB PO ONE (14:00)
[2018-12-08] MEDS ORDERED: POLYETHYLENE GLYCOL 17 GM PACKET PO PRN (14:00)
[2018-12-08] MEDS ORDERED: POTASSIUM CHLORIDE (SR) 20 MEQ TAB PO ONE ×2 (14:00→18:00)
[2018-12-08] MEDS ORDERED: MAGNESIUM SULFATE 2 GM/50 ML 50 ML IVPB ONE (14:30)
[2018-12-08 15:37] VITALS: BP 129/68; PULSE 63; RESP 20
[2018-12-08] MEDS: DAPTOMYCIN 800 MG in SOD CHLORIDE 0.9% 100 ML IVPB SCH (16:53)
[2018-12-08 20:33] VITALS: BP 140/88; PULSE 97; RESP 20
[2018-12-09 01:46] VITALS: BP 142/65; PULSE 104; RESP 20
[2018-12-09] MEDS: CIPROFLOXACIN 500 MG TAB PO SCH (05:33)
[2018-12-09] MEDS: LEVOTHYROXINE 125 MCG TAB PO SCH (05:33)
[2018-12-09 07:51] VITALS: BP 125/69; PULSE 93; RESP 20
[2018-12-09] MEDS: INSULIN ASPART [NOVOLOG] 3 ML PEN SC SCH ×4 (08:00→20:50)
[2018-12-09] MEDS: SUCRALFATE (100 MG/ML) 10ML CUP PO SCH ×4 (08:58→20:51)
[2018-12-09] MEDS: FLUCONAZOLE 200 MG TAB PO SCH (08:58)
[2018-12-09] MEDS: BACLOFEN 10 MG TAB PO SCH ×3 (08:58→20:48)
[2018-12-09] MEDS: DOCUSATE SODIUM 100 MG CAP PO SCH ×2 (08:58→20:48)
[2018-12-09] MEDS: FAMOTIDINE 20 MG TAB PO SCH ×2 (08:58→20:48)
[2018-12-09] MEDS: CEFEPIME 2GM/50 ML (PMX) 50 ML IVPB SCH (08:58)
[2018-12-09] MEDS: NYSTATIN 30 GM POWDER BTL TOP SCH ×2 (08:59→20:50)
[2018-12-09] MEDS: DICLOFENAC SODIUM 1% GEL 100 GM TUBE TP SCH ×4 (09:00→20:50)
[2018-12-09] MEDS: CLOTRIMAZOLE 1% 30 GM CR TOP SCH (09:00)
[2018-12-09] MEDS: AMMONIUM LACTATE 12% 225 GM LOT TOP SCH (09:01)
[2018-12-09] MEDS: DAKINS 0.0125%(1/40) 473 ML SOLUTION TP SCH (09:02)
[2018-12-09] MEDS: DAPTOMYCIN 800 MG in SOD CHLORIDE 0.9% 100 ML IVPB SCH (17:07)
[2018-12-09 19:22] VITALS: BP 121/59; PULSE 81; RESP 18
[2018-12-10 02:06] VITALS: BP 119/57; PULSE 82; RESP 16
[2018-12-10] MEDS: LEVOTHYROXINE 125 MCG TAB PO SCH (05:58)
[2018-12-10] MEDS: CIPROFLOXACIN 500 MG TAB PO SCH (05:58)
[2018-12-10] MEDS: OXYCODONE/ACETAMINOPHEN (5/325) TAB PO PRN (07:41)
[2018-12-10] MEDS: INSULIN ASPART [NOVOLOG] 3 ML PEN SC SCH ×4 (08:00→21:00)
[2018-12-10 08:26] VITALS: BP 119/53; PULSE 82; RESP 18
[2018-12-10] MEDS: CEFEPIME 2GM/50 ML (PMX) 50 ML IVPB SCH (10:14)
[2018-12-10] MEDS: SUCRALFATE (100 MG/ML) 10ML CUP PO SCH ×4 (10:14→21:35)
[2018-12-10] MEDS: BACLOFEN 10 MG TAB PO SCH ×3 (10:15→21:35)
[2018-12-10] MEDS: DOCUSATE SODIUM 100 MG CAP PO SCH ×2 (10:15→21:35)
[2018-12-10] MEDS: FLUCONAZOLE 200 MG TAB PO SCH (10:15)
[2018-12-10] MEDS: FAMOTIDINE 20 MG TAB PO SCH ×2 (10:16→21:35)
[2018-12-10] MEDS: NYSTATIN 30 GM POWDER BTL TOP SCH ×2 (10:16→21:37)
[2018-12-10] MEDS: CLOTRIMAZOLE 1% 30 GM CR TOP SCH (10:17)
[2018-12-10] MEDS: DAKINS 0.0125%(1/40) 473 ML SOLUTION TP SCH (10:17)
[2018-12-10] MEDS: DICLOFENAC SODIUM 1% GEL 100 GM TUBE TP SCH ×4 (10:17→21:38)
[2018-12-10] MEDS: AMMONIUM LACTATE 12% 225 GM LOT TOP SCH (10:18)
[2018-12-10] MEDS: BISACODYL (EC) 5 MG TAB PO PRN (13:31)
[2018-12-10 14:50] VITALS: BP 114/65; PULSE 79; RESP 18
[2018-12-10] MEDS: DAPTOMYCIN 800 MG in SOD CHLORIDE 0.9% 100 ML IVPB SCH (17:12)
[2018-12-10 19:33] VITALS: BP 101/54; PULSE 78; RESP 18
[2018-12-11 02:04] VITALS: BP 123/64; PULSE 83; RESP 18
[2018-12-11] MEDS: OXYCODONE/ACETAMINOPHEN (5/325) TAB PO PRN ×2 (04:28→09:15)
[2018-12-11] MEDS: CIPROFLOXACIN 500 MG TAB PO SCH (05:35)
[2018-12-11] MEDS: LEVOTHYROXINE 125 MCG TAB PO SCH (05:35)
[2018-12-11 07:41] VITALS: BP 131/60; PULSE 80; RESP 20
[2018-12-11] MEDS: INSULIN ASPART [NOVOLOG] 3 ML PEN SC SCH ×4 (08:00→20:21)
[2018-12-11] MEDS: DOCUSATE SODIUM 100 MG CAP PO SCH ×2 (09:14→20:20)
[2018-12-11] MEDS: SUCRALFATE (100 MG/ML) 10ML CUP PO SCH ×4 (09:14→20:19)
[2018-12-11] MEDS: FLUCONAZOLE 200 MG TAB PO SCH (09:15)
[2018-12-11] MEDS: BACLOFEN 10 MG TAB PO SCH ×3 (09:15→20:20)
[2018-12-11] MEDS: FAMOTIDINE 20 MG TAB PO SCH ×2 (09:16→20:21)
[2018-12-11] MEDS: CEFEPIME 2GM/50 ML (PMX) 50 ML IVPB SCH (09:16)
[2018-12-11] MEDS: DICLOFENAC SODIUM 1% GEL 100 GM TUBE TP SCH ×4 (09:17→20:22)
[2018-12-11] MEDS: CLOTRIMAZOLE 1% 30 GM CR TOP SCH (09:17)
[2018-12-11] MEDS: DAKINS 0.0125%(1/40) 473 ML SOLUTION TP SCH (09:17)
[2018-12-11] MEDS: NYSTATIN 30 GM POWDER BTL TOP SCH ×2 (09:17→20:22)
[2018-12-11] MEDS: AMMONIUM LACTATE 12% 225 GM LOT TOP SCH (09:18)
[2018-12-11] MEDS ORDERED: LACTULOSE 30ML CUP PO ONE (11:00)
[2018-12-11 14:00] VITALS: BP 113/60; PULSE 73; RESP 18
[2018-12-11] MEDS: MINERAL OIL 133 ML ENEMA PR PRN (16:13)
[2018-12-11] MEDS: DAPTOMYCIN 800 MG in SOD CHLORIDE 0.9% 100 ML IVPB SCH (16:13)
[2018-12-11 19:35] VITALS: BP 128/51; PULSE 86; RESP 18
[2018-12-11] MEDS: SENNA/DOCUSATE NA (8.6MG/50MG) TAB PO SCH (20:20)
[2018-12-12] MEDS ORDERED: LACTULOSE 30ML CUP PO SCH
[2018-12-12 01:20] VITALS: BP 124/60; PULSE 89; RESP 18
[2018-12-12] MEDS: LACTULOSE 30ML CUP PO SCH ×5 (01:38→16:26)
[2018-12-12] MEDS: CIPROFLOXACIN 500 MG TAB PO SCH (05:46)
[2018-12-12] MEDS: LEVOTHYROXINE 125 MCG TAB PO SCH (05:46)
[2018-12-12 07:43] VITALS: BP 133/64; PULSE 87; RESP 20
[2018-12-12] MEDS: INSULIN ASPART [NOVOLOG] 3 ML PEN SC SCH ×4 (08:00→21:00)
[2018-12-12] MEDS: MINERAL OIL 133 ML ENEMA PR PRN (08:53)
[2018-12-12] MEDS: FAMOTIDINE 20 MG TAB PO SCH ×2 (08:54→21:12)
[2018-12-12] MEDS: BACLOFEN 10 MG TAB PO SCH ×3 (08:55→21:12)
[2018-12-12] MEDS: FLUCONAZOLE 200 MG TAB PO SCH (08:55)
[2018-12-12] MEDS: DOCUSATE SODIUM 100 MG CAP PO SCH ×2 (08:55→21:11)
[2018-12-12] MEDS: SENNA/DOCUSATE NA (8.6MG/50MG) TAB PO SCH ×2 (08:55→21:12)
[2018-12-12] MEDS: SUCRALFATE (100 MG/ML) 10ML CUP PO SCH ×4 (08:56→21:20)
[2018-12-12] MEDS: POLYETHYLENE GLYCOL 17 GM PACKET PO SCH (08:56)
[2018-12-12] MEDS: CEFEPIME 2GM/50 ML (PMX) 50 ML IVPB SCH (08:56)
[2018-12-12] MEDS: DICLOFENAC SODIUM 1% GEL 100 GM TUBE TP SCH ×4 (08:57→21:16)
[2018-12-12] MEDS: NYSTATIN 30 GM POWDER BTL TOP SCH ×2 (08:57→21:17)
[2018-12-12] MEDS: CLOTRIMAZOLE 1% 30 GM CR TOP SCH (08:57)
[2018-12-12] MEDS: AMMONIUM LACTATE 12% 225 GM LOT TOP SCH (08:58)
[2018-12-12] MEDS: DAKINS 0.0125%(1/40) 473 ML SOLUTION TP SCH (09:00)
[2018-12-12 14:12] VITALS: BP 121/60; PULSE 76; RESP 20
[2018-12-12] MEDS: DAPTOMYCIN 800 MG in SOD CHLORIDE 0.9% 100 ML IVPB SCH (16:20)
[2018-12-12 19:44] VITALS: BP 127/62; PULSE 71; RESP 20
[2018-12-13 01:33] VITALS: BP 118/51; PULSE 93; RESP 20
[2018-12-13] MEDS: CIPROFLOXACIN 500 MG TAB PO SCH (05:22)
[2018-12-13] MEDS: LEVOTHYROXINE 125 MCG TAB PO SCH (05:22)
[2018-12-13] MEDS: ALTEPLASE (CATHFLO) 2 MG INJ CATHETER PRN (06:27)
[2018-12-13 07:30] VITALS: BP 118/83; PULSE 80; RESP 18
[2018-12-13] MEDS: INSULIN ASPART [NOVOLOG] 3 ML PEN SC SCH ×4 (08:00→21:00)
[2018-12-13] MEDS: DOCUSATE SODIUM 100 MG CAP PO SCH ×2 (08:42→21:10)
[2018-12-13] MEDS: POLYETHYLENE GLYCOL 17 GM PACKET PO SCH (08:42)
[2018-12-13] MEDS: SUCRALFATE (100 MG/ML) 10ML CUP PO SCH ×4 (08:42→21:10)
[2018-12-13] MEDS: FLUCONAZOLE 200 MG TAB PO SCH (08:42)
[2018-12-13] MEDS: FAMOTIDINE 20 MG TAB PO SCH ×2 (08:43→21:11)
[2018-12-13] MEDS: BACLOFEN 10 MG TAB PO SCH ×3 (08:43→21:10)
[2018-12-13] MEDS: SENNA/DOCUSATE NA (8.6MG/50MG) TAB PO SCH ×2 (08:43→21:10)
[2018-12-13] MEDS: CEFEPIME 2GM/50 ML (PMX) 50 ML IVPB SCH (08:43)
[2018-12-13] MEDS: CLOTRIMAZOLE 1% 30 GM CR TOP SCH (08:54)
[2018-12-13] MEDS: AMMONIUM LACTATE 12% 225 GM LOT TOP SCH (08:54)
[2018-12-13] MEDS: NYSTATIN 30 GM POWDER BTL TOP SCH ×2 (08:54→23:22)
[2018-12-13] MEDS: DICLOFENAC SODIUM 1% GEL 100 GM TUBE TP SCH ×4 (08:55→21:09)
[2018-12-13] MEDS: DAKINS 0.0125%(1/40) 473 ML SOLUTION TP SCH (09:00)
[2018-12-13 14:26] VITALS: BP 138/64; PULSE 81; RESP 18
[2018-12-13] MEDS: DAPTOMYCIN 800 MG in SOD CHLORIDE 0.9% 100 ML IVPB SCH (16:12)
[2018-12-13 19:38] VITALS: BP 138/67; PULSE 82; RESP 18
[2018-12-14 01:24] VITALS: BP 136/61; PULSE 79; RESP 20
[2018-12-14] MEDS: LEVOTHYROXINE 125 MCG TAB PO SCH (06:23)
[2018-12-14] MEDS: CIPROFLOXACIN 500 MG TAB PO SCH (06:23)
[2018-12-14 07:27] VITALS: BP 131/62; PULSE 78; RESP 20
[2018-12-14] MEDS: INSULIN ASPART [NOVOLOG] 3 ML PEN SC SCH ×4 (08:00→21:00)
[2018-12-14] MEDS: CEFEPIME 2GM/50 ML (PMX) 50 ML IVPB SCH (09:06)
[2018-12-14] MEDS: SUCRALFATE (100 MG/ML) 10ML CUP PO SCH ×4 (09:06→21:19)
[2018-12-14] MEDS: POLYETHYLENE GLYCOL 17 GM PACKET PO SCH (09:08)
[2018-12-14] MEDS: DOCUSATE SODIUM 100 MG CAP PO SCH ×2 (09:08→21:19)
[2018-12-14] MEDS: SENNA/DOCUSATE NA (8.6MG/50MG) TAB PO SCH ×2 (09:08→21:19)
[2018-12-14] MEDS: BISACODYL (EC) 5 MG TAB PO PRN (09:09)
[2018-12-14] MEDS: NYSTATIN 30 GM POWDER BTL TOP SCH ×2 (09:09→21:24)
[2018-12-14] MEDS: CLOTRIMAZOLE 1% 30 GM CR TOP SCH (09:09)
[2018-12-14] MEDS: FAMOTIDINE 20 MG TAB PO SCH ×2 (09:09→21:19)
[2018-12-14] MEDS: FLUCONAZOLE 200 MG TAB PO SCH (09:09)
[2018-12-14] MEDS: BACLOFEN 10 MG TAB PO SCH ×3 (09:09→21:19)
[2018-12-14] MEDS: DICLOFENAC SODIUM 1% GEL 100 GM TUBE TP SCH ×4 (09:10→21:24)
[2018-12-14] MEDS: AMMONIUM LACTATE 12% 225 GM LOT TOP SCH (09:12)
[2018-12-14] MEDS: DAKINS 0.0125%(1/40) 473 ML SOLUTION TP SCH (09:12)
[2018-12-14 13:57] VITALS: BP 112/56; PULSE 72; RESP 20
[2018-12-14] MEDS: DAPTOMYCIN 800 MG in SOD CHLORIDE 0.9% 100 ML IVPB SCH (15:02)
[2018-12-14 20:11] VITALS: BP 140/62; PULSE 73; RESP 18
[2018-12-14 21:20] VITALS: BP 154/74; PULSE 73
[2018-12-15 02:00] VITALS: BP 121/58; PULSE 78; RESP 16
[2018-12-15] MEDS: CIPROFLOXACIN 500 MG TAB PO SCH (06:14)
[2018-12-15] MEDS: LEVOTHYROXINE 125 MCG TAB PO SCH (06:14)
[2018-12-15 07:44] VITALS: BP 165/65; PULSE 80
[2018-12-15] MEDS: INSULIN ASPART [NOVOLOG] 3 ML PEN SC SCH ×4 (08:00→21:00)
[2018-12-15] MEDS: NYSTATIN 30 GM POWDER BTL TOP SCH ×2 (08:44→21:22)
[2018-12-15] MEDS: CLOTRIMAZOLE 1% 30 GM CR TOP SCH (08:44)
[2018-12-15] MEDS: DICLOFENAC SODIUM 1% GEL 100 GM TUBE TP SCH ×4 (08:44→21:21)
[2018-12-15] MEDS: SUCRALFATE (100 MG/ML) 10ML CUP PO SCH ×4 (08:45→21:20)
[2018-12-15] MEDS: FLUCONAZOLE 200 MG TAB PO SCH (08:45)
[2018-12-15] MEDS: DOCUSATE SODIUM 100 MG CAP PO SCH ×2 (08:45→21:20)
[2018-12-15] MEDS: BACLOFEN 10 MG TAB PO SCH ×3 (08:45→21:20)
[2018-12-15] MEDS: FAMOTIDINE 20 MG TAB PO SCH ×2 (08:45→21:20)
[2018-12-15] MEDS: CEFEPIME 2GM/50 ML (PMX) 50 ML IVPB SCH (08:45)
[2018-12-15] MEDS: SENNA/DOCUSATE NA (8.6MG/50MG) TAB PO SCH ×2 (08:46→21:20)
[2018-12-15] MEDS: POLYETHYLENE GLYCOL 17 GM PACKET PO SCH (08:55)
[2018-12-15] MEDS: AMMONIUM LACTATE 12% 225 GM LOT TOP SCH (08:56)
[2018-12-15] MEDS: DAKINS 0.0125%(1/40) 473 ML SOLUTION TP SCH (08:56)
[2018-12-15 19:37] VITALS: BP 140/80; PULSE 71; RESP 20
[2018-12-16 01:58] VITALS: BP 110/56; PULSE 76; RESP 20
[2018-12-16] MEDS: CIPROFLOXACIN 500 MG TAB PO SCH (06:08)
[2018-12-16] MEDS: LEVOTHYROXINE 125 MCG TAB PO SCH (06:08)
[2018-12-16] MEDS: ALTEPLASE (CATHFLO) 2 MG INJ CATHETER PRN (06:41)
[2018-12-16 07:35] VITALS: BP 113/59; PULSE 79; RESP 18
[2018-12-16] MEDS: INSULIN ASPART [NOVOLOG] 3 ML PEN SC SCH ×4 (08:00→21:00)
[2018-12-16] MEDS: CLOTRIMAZOLE 1% 30 GM CR TOP SCH (09:58)
[2018-12-16] MEDS: NYSTATIN 30 GM POWDER BTL TOP SCH ×2 (09:58→21:17)
[2018-12-16] MEDS: SUCRALFATE (100 MG/ML) 10ML CUP PO SCH ×4 (09:58→21:59)
[2018-12-16] MEDS: DICLOFENAC SODIUM 1% GEL 100 GM TUBE TP SCH ×4 (09:58→21:17)
[2018-12-16] MEDS: FLUCONAZOLE 200 MG TAB PO SCH (09:59)
[2018-12-16] MEDS: DOCUSATE SODIUM 100 MG CAP PO SCH ×2 (09:59→21:09)
[2018-12-16] MEDS: FAMOTIDINE 20 MG TAB PO SCH ×2 (09:59→21:10)
[2018-12-16] MEDS: SENNA/DOCUSATE NA (8.6MG/50MG) TAB PO SCH ×2 (09:59→21:09)
[2018-12-16] MEDS: BISACODYL (EC) 5 MG TAB PO PRN (09:59)
[2018-12-16] MEDS: BACLOFEN 10 MG TAB PO SCH ×3 (09:59→21:10)
[2018-12-16] MEDS: POLYETHYLENE GLYCOL 17 GM PACKET PO SCH (09:59)
[2018-12-16] MEDS: AMMONIUM LACTATE 12% 225 GM LOT TOP SCH (10:00)
[2018-12-16] MEDS: DAKINS 0.0125%(1/40) 473 ML SOLUTION TP SCH (10:00)
[2018-12-16] MEDS: CEFEPIME 2GM/50 ML (PMX) 50 ML IVPB SCH (10:01)
[2018-12-16 13:23] VITALS: BP 124/60; PULSE 61; RESP 18
[2018-12-16] MEDS: DAPTOMYCIN 800 MG in SOD CHLORIDE 0.9% 100 ML IVPB SCH (17:01)
[2018-12-16 19:35] VITALS: BP 145/64; PULSE 73; RESP 22
[2018-12-17 01:46] VITALS: BP 144/70; PULSE 77; RESP 20
[2018-12-17] MEDS: LEVOTHYROXINE 125 MCG TAB PO SCH (06:02)
[2018-12-17] MEDS: CIPROFLOXACIN 500 MG TAB PO SCH (06:02)
[2018-12-17 07:36] VITALS: BP 116/56; PULSE 70; RESP 18
[2018-12-17] MEDS: INSULIN ASPART [NOVOLOG] 3 ML PEN SC SCH ×4 (08:00→20:34)
[2018-12-17] MEDS: SUCRALFATE (100 MG/ML) 10ML CUP PO SCH ×4 (08:41→20:34)
[2018-12-17] MEDS: BISACODYL (EC) 5 MG TAB PO PRN (08:42)
[2018-12-17] MEDS: POLYETHYLENE GLYCOL 17 GM PACKET PO SCH (08:42)
[2018-12-17] MEDS: SENNA/DOCUSATE NA (8.6MG/50MG) TAB PO SCH ×2 (08:43→20:33)
[2018-12-17] MEDS: FLUCONAZOLE 200 MG TAB PO SCH (08:43)
[2018-12-17] MEDS: FAMOTIDINE 20 MG TAB PO SCH ×2 (08:43→20:33)
[2018-12-17] MEDS: BACLOFEN 10 MG TAB PO SCH ×3 (08:43→20:33)
[2018-12-17] MEDS: DOCUSATE SODIUM 100 MG CAP PO SCH ×2 (08:43→20:33)
[2018-12-17] MEDS: DICLOFENAC SODIUM 1% GEL 100 GM TUBE TP SCH ×4 (08:44→20:35)
[2018-12-17] MEDS: NYSTATIN 30 GM POWDER BTL TOP SCH ×2 (08:44→20:35)
[2018-12-17] MEDS: DAKINS 0.0125%(1/40) 473 ML SOLUTION TP SCH (08:45)
[2018-12-17] MEDS: CLOTRIMAZOLE 1% 30 GM CR TOP SCH (08:45)
[2018-12-17] MEDS: AMMONIUM LACTATE 12% 225 GM LOT TOP SCH (08:45)
[2018-12-17] MEDS: CEFEPIME 2GM/50 ML (PMX) 50 ML IVPB SCH (08:53)
[2018-12-17 14:38] VITALS: BP 128/60; PULSE 65; RESP 18
[2018-12-17] MEDS: MINERAL OIL 133 ML ENEMA PR PRN (16:58)
[2018-12-17 19:38] VITALS: BP 138/63; PULSE 90; RESP 20
[2018-12-18] VITALS (7 sets, daily range): BP systolic 86–122; BP diastolic 51–57; PULSE 61–76; RESP 16–20
[2018-12-18] MEDS: CIPROFLOXACIN 500 MG TAB PO SCH (05:36)
[2018-12-18] MEDS: LEVOTHYROXINE 125 MCG TAB PO SCH (05:36)
[2018-12-18] MEDS: INSULIN ASPART [NOVOLOG] 3 ML PEN SC SCH ×4 (07:58→20:17)
[2018-12-18] MEDS ORDERED: POTASSIUM CHLORIDE (SR) 20 MEQ TAB PO STA (08:32)
[2018-12-18] MEDS: CEFEPIME 2GM/50 ML (PMX) 50 ML IVPB SCH (09:30)
[2018-12-18] MEDS: DOCUSATE SODIUM 100 MG CAP PO SCH ×2 (09:31→20:47)
[2018-12-18] MEDS: FAMOTIDINE 20 MG TAB PO SCH ×2 (09:31→20:48)
[2018-12-18] MEDS: BACLOFEN 10 MG TAB PO SCH ×3 (09:31→20:47)
[2018-12-18] MEDS: SENNA/DOCUSATE NA (8.6MG/50MG) TAB PO SCH ×2 (09:31→20:48)
[2018-12-18] MEDS: SUCRALFATE (100 MG/ML) 10ML CUP PO SCH ×4 (09:31→20:47)
[2018-12-18] MEDS: FLUCONAZOLE 200 MG TAB PO SCH (09:31)
[2018-12-18] MEDS: POLYETHYLENE GLYCOL 17 GM PACKET PO SCH (09:32)
[2018-12-18] MEDS: DICLOFENAC SODIUM 1% GEL 100 GM TUBE TP SCH ×4 (09:41→20:48)
[2018-12-18] MEDS: NYSTATIN 30 GM POWDER BTL TOP SCH ×2 (09:42→20:48)
[2018-12-18] MEDS: CLOTRIMAZOLE 1% 30 GM CR TOP SCH (09:42)
[2018-12-18] MEDS: AMMONIUM LACTATE 12% 225 GM LOT TOP SCH (09:46)
[2018-12-18] MEDS: DAKINS 0.0125%(1/40) 473 ML SOLUTION TP SCH (09:46)
[2018-12-18] MEDS: LORAZEPAM 2 MG INJ IV PRN (13:24)
[2018-12-18] MEDS ORDERED: ALBUMIN HUMAN 25% 100 ML IV ONE (15:00)
[2018-12-18] MEDS: DAPTOMYCIN 800 MG in SOD CHLORIDE 0.9% 100 ML IVPB SCH (16:45)
[2018-12-18] MEDS ORDERED: DEXTROSE 50% 50 ML SYRINGE IV ONE ×2 (17:30→21:30)
[2018-12-18] MEDS: DEXTROSE 5%-0.45% NACL 1,000 ML IV SCH (21:39)
[2018-12-19] VITALS (18 sets, daily range): BP systolic 114–161; BP diastolic 52–99; PULSE 67–98; RESP 15–19
[2018-12-19] MEDS: LORAZEPAM 2 MG INJ IV PRN ×3 (01:42→11:15)
[2018-12-19] MEDS: CIPROFLOXACIN 500 MG TAB PO SCH (05:24)
[2018-12-19] MEDS: LEVOTHYROXINE 125 MCG TAB PO SCH (05:24)
[2018-12-19] MEDS: INSULIN ASPART [NOVOLOG] 3 ML PEN SC SCH ×4 (08:00→21:00)
[2018-12-19] MEDS: CEFEPIME 2GM/50 ML (PMX) 50 ML IVPB SCH (08:10)
[2018-12-19] MEDS: NYSTATIN 30 GM POWDER BTL TOP SCH (08:10)
[2018-12-19] MEDS: CLOTRIMAZOLE 1% 30 GM CR TOP SCH (08:10)
[2018-12-19] MEDS: DICLOFENAC SODIUM 1% GEL 100 GM TUBE TP SCH ×3 (08:10→18:14)
[2018-12-19] MEDS: AMMONIUM LACTATE 12% 225 GM LOT TOP SCH (08:11)
[2018-12-19] MEDS: DAKINS 0.0125%(1/40) 473 ML SOLUTION TP SCH (08:11)
[2018-12-19] MEDS: POLYETHYLENE GLYCOL 17 GM PACKET PO SCH (09:00)
[2018-12-19] MEDS: FAMOTIDINE 20 MG TAB PO SCH (09:00)
[2018-12-19] MEDS: DOCUSATE SODIUM 100 MG CAP PO SCH (09:00)
[2018-12-19] MEDS: SENNA/DOCUSATE NA (8.6MG/50MG) TAB PO SCH (09:00)
[2018-12-19] MEDS: BACLOFEN 10 MG TAB PO SCH ×2 (09:00→12:46)
[2018-12-19] MEDS: FLUCONAZOLE 200 MG TAB PO SCH (09:00)
[2018-12-19] MEDS: SUCRALFATE (100 MG/ML) 10ML CUP PO SCH ×3 (09:00→18:13)
[2018-12-19] MEDS ORDERED: SOD CHLORIDE 0.9% 500 ML ONE (15:36)
[2018-12-19] MEDS ORDERED: HEPARIN 1000 UNITS/ML 10 ML INJ ONE (15:36)
[2018-12-19] MEDS ORDERED: FENTAnyl 50 MCG/ML VIAL ONE (16:11)
[2018-12-19] MEDS ORDERED: hydrALAzine 20 MG INJ IV PRN (16:30)
[2018-12-19] MEDS: DEXTROSE 5%-0.45% NACL 1,000 ML IV SCH (21:30)
[2018-12-19] MEDS: HEPARIN 1000 UNITS/ML 10 ML INJ CATHETER SCH (23:59)
[2018-12-20] MEDS: SENNA/DOCUSATE NA (8.6MG/50MG) TAB PO SCH ×3 (00:18→22:24)
[2018-12-20] MEDS: FAMOTIDINE 20 MG TAB PO SCH ×3 (00:18→22:24)
[2018-12-20] MEDS: BACLOFEN 10 MG TAB PO SCH ×4 (00:18→22:24)
[2018-12-20] MEDS: DOCUSATE SODIUM 100 MG CAP PO SCH ×3 (00:19→22:24)
[2018-12-20] MEDS: SUCRALFATE (100 MG/ML) 10ML CUP PO SCH ×5 (00:19→22:25)
[2018-12-20] MEDS: DICLOFENAC SODIUM 1% GEL 100 GM TUBE TP SCH ×5 (00:22→22:26)
[2018-12-20] MEDS: NYSTATIN 30 GM POWDER BTL TOP SCH ×3 (00:42→22:25)
[2018-12-20] MEDS: DEXTROSE 5%-0.45% NACL 1,000 ML IV SCH ×2 (00:42→21:30)
[2018-12-20 01:52] VITALS: BP 139/83; PULSE 80; RESP 18
[2018-12-20] MEDS: LEVOTHYROXINE 125 MCG TAB PO SCH (06:11)
[2018-12-20] MEDS: CIPROFLOXACIN 500 MG TAB PO SCH (06:11)
[2018-12-20 07:44] VITALS: BP 155/79; PULSE 93; RESP 17
[2018-12-20] MEDS: INSULIN ASPART [NOVOLOG] 3 ML PEN SC SCH ×4 (08:00→21:00)
[2018-12-20] MEDS: FLUCONAZOLE 200 MG TAB PO SCH (09:47)
[2018-12-20] MEDS: POLYETHYLENE GLYCOL 17 GM PACKET PO SCH (09:47)
[2018-12-20] MEDS: AMMONIUM LACTATE 12% 225 GM LOT TOP SCH (09:49)
[2018-12-20] MEDS: DAKINS 0.0125%(1/40) 473 ML SOLUTION TP SCH (09:49)
[2018-12-20] MEDS: CLOTRIMAZOLE 1% 30 GM CR TOP SCH (09:50)
[2018-12-20] MEDS: CEFEPIME 2GM/50 ML (PMX) 50 ML IVPB SCH (11:34)
[2018-12-20 14:03] VITALS: BP 152/82; PULSE 90; RESP 18
[2018-12-20] MEDS: DAPTOMYCIN 800 MG in SOD CHLORIDE 0.9% 100 ML IVPB SCH (16:08)
[2018-12-20 19:22] VITALS: BP 149/80; PULSE 86; RESP 18
[2018-12-20 23:05] VITALS: BP 150/73
[2018-12-21] VITALS (13 sets, daily range): BP systolic 127–175; BP diastolic 72–113; PULSE 70–100; RESP 17–28
[2018-12-21] MEDS: MINERAL OIL 133 ML ENEMA PR PRN (00:28)
[2018-12-21] MEDS: LEVOTHYROXINE 125 MCG TAB PO SCH (05:09)
[2018-12-21] MEDS: CIPROFLOXACIN 500 MG TAB PO SCH (05:09)
[2018-12-21] MEDS: DEXTROSE 5%-0.45% NACL 1,000 ML IV SCH (05:09)
[2018-12-21] MEDS: BISACODYL (EC) 5 MG TAB PO PRN (06:01)
[2018-12-21] MEDS: INSULIN ASPART [NOVOLOG] 3 ML PEN SC SCH ×4 (08:00→20:37)
[2018-12-21] MEDS: FAMOTIDINE 20 MG TAB PO SCH (08:26)
[2018-12-21] MEDS: SENNA/DOCUSATE NA (8.6MG/50MG) TAB PO SCH ×2 (08:26→20:36)
[2018-12-21] MEDS: BACLOFEN 10 MG TAB PO SCH ×3 (08:26→20:36)
[2018-12-21] MEDS: DOCUSATE SODIUM 100 MG CAP PO SCH ×2 (08:26→20:36)
[2018-12-21] MEDS: FLUCONAZOLE 200 MG TAB PO SCH (08:26)
[2018-12-21] MEDS: POLYETHYLENE GLYCOL 17 GM PACKET PO SCH (08:27)
[2018-12-21] MEDS: DAKINS 0.0125%(1/40) 473 ML SOLUTION TP SCH (08:27)
[2018-12-21] MEDS: NYSTATIN 30 GM POWDER BTL TOP SCH ×2 (08:28→20:40)
[2018-12-21] MEDS: AMMONIUM LACTATE 12% 225 GM LOT TOP SCH (08:28)
[2018-12-21] MEDS: SUCRALFATE (100 MG/ML) 10ML CUP PO SCH ×4 (08:28→20:37)
[2018-12-21] MEDS: CLOTRIMAZOLE 1% 30 GM CR TOP SCH (08:28)
[2018-12-21] MEDS: DICLOFENAC SODIUM 1% GEL 100 GM TUBE TP SCH ×4 (08:30→20:40)
[2018-12-21] MEDS: HEPARIN 1000 UNITS/ML 10 ML INJ CATHETER SCH (09:56)
[2018-12-21] MEDS: CEFEPIME 2GM/50 ML (PMX) 50 ML IVPB SCH (09:57)
[2018-12-21] MEDS: ONDANSETRON 4 MG INJ IV PRN (12:54)
[2018-12-21] MEDS: HEPARIN 5,000 UNIT/1 ML VIAL SC SCH (21:00)
[2018-12-22] VITALS (17 sets, daily range): BP systolic 98–140; BP diastolic 41–78; PULSE 63–81; RESP 15–20
[2018-12-22] MEDS: HYDROCODONE/APAP (10/325) TAB PO PRN (00:20)
[2018-12-22] MEDS: CIPROFLOXACIN 500 MG TAB PO SCH (05:36)
[2018-12-22] MEDS: LEVOTHYROXINE 125 MCG TAB PO SCH (05:36)
[2018-12-22] MEDS: DEXTROSE 5%-0.45% NACL 1,000 ML IV SCH ×2 (05:37→21:30)
[2018-12-22] MEDS: INSULIN ASPART [NOVOLOG] 3 ML PEN SC SCH ×4 (08:00→21:00)
[2018-12-22] MEDS: POLYETHYLENE GLYCOL 17 GM PACKET PO SCH (09:00)
[2018-12-22] MEDS: BACLOFEN 10 MG TAB PO SCH ×3 (09:54→21:11)
[2018-12-22] MEDS: SUCRALFATE (100 MG/ML) 10ML CUP PO SCH ×4 (09:54→21:12)
[2018-12-22] MEDS: DOCUSATE SODIUM 100 MG CAP PO SCH ×2 (09:54→21:12)
[2018-12-22] MEDS: FAMOTIDINE 20 MG TAB PO SCH (09:55)
[2018-12-22] MEDS: SENNA/DOCUSATE NA (8.6MG/50MG) TAB PO SCH ×2 (09:55→21:12)
[2018-12-22] MEDS: FLUCONAZOLE 200 MG TAB PO SCH (09:55)
[2018-12-22] MEDS: DICLOFENAC SODIUM 1% GEL 100 GM TUBE TP SCH ×4 (09:56→21:13)
[2018-12-22] MEDS: NYSTATIN 30 GM POWDER BTL TOP SCH ×2 (09:56→21:13)
[2018-12-22] MEDS: CLOTRIMAZOLE 1% 30 GM CR TOP SCH (09:57)
[2018-12-22] MEDS: AMMONIUM LACTATE 12% 225 GM LOT TOP SCH (09:57)
[2018-12-22] MEDS: DAKINS 0.0125%(1/40) 473 ML SOLUTION TP SCH (09:57)
[2018-12-22] MEDS: HEPARIN 5,000 UNIT/1 ML VIAL SC SCH ×2 (10:03→21:19)
[2018-12-22] MEDS: CEFEPIME 2GM/50 ML (PMX) 50 ML IVPB SCH (10:15)
[2018-12-22] MEDS: ONDANSETRON 4 MG INJ IV PRN (12:20)
[2018-12-22] MEDS: HEPARIN 1000 UNITS/ML 10 ML INJ CATHETER SCH (18:00)
[2018-12-22] MEDS: DAPTOMYCIN 800 MG in SOD CHLORIDE 0.9% 100 ML IVPB SCH (18:24)
[2018-12-23] VITALS (19 sets, daily range): BP systolic 96–145; BP diastolic 50–79; PULSE 66–77; RESP 16–19
[2018-12-23] MEDS: CIPROFLOXACIN 500 MG TAB PO SCH (05:11)
[2018-12-23] MEDS: LEVOTHYROXINE 125 MCG TAB PO SCH (05:11)
[2018-12-23] MEDS: INSULIN ASPART [NOVOLOG] 3 ML PEN SC SCH ×4 (08:00→20:51)
[2018-12-23] MEDS ORDERED: POTASSIUM CHLORIDE (SR) 20 MEQ TAB PO STA (08:32)
[2018-12-23] MEDS: SENNA/DOCUSATE NA (8.6MG/50MG) TAB PO SCH ×2 (09:00→20:51)
[2018-12-23] MEDS: BACLOFEN 10 MG TAB PO SCH ×3 (09:00→20:50)
[2018-12-23] MEDS: DOCUSATE SODIUM 100 MG CAP PO SCH ×2 (09:00→20:50)
[2018-12-23] MEDS: SUCRALFATE (100 MG/ML) 10ML CUP PO SCH ×4 (09:00→20:49)
[2018-12-23] MEDS: HEPARIN 5,000 UNIT/1 ML VIAL SC SCH ×2 (09:00→20:54)
[2018-12-23] MEDS: NYSTATIN 30 GM POWDER BTL TOP SCH ×2 (09:35→20:52)
[2018-12-23] MEDS: DAKINS 0.0125%(1/40) 473 ML SOLUTION TP SCH (09:35)
[2018-12-23] MEDS: AMMONIUM LACTATE 12% 225 GM LOT TOP SCH (09:35)
[2018-12-23] MEDS: CLOTRIMAZOLE 1% 30 GM CR TOP SCH (09:35)
[2018-12-23] MEDS: DICLOFENAC SODIUM 1% GEL 100 GM TUBE TP SCH ×4 (09:36→20:51)
[2018-12-23] MEDS: DEXTROSE 5%-0.45% NACL 1,000 ML IV SCH ×2 (10:23→21:30)
[2018-12-23] MEDS: HEPARIN 1000 UNITS/ML 10 ML INJ CATHETER SCH (14:02)
[2018-12-23] MEDS: CEFEPIME 2GM/50 ML (PMX) 50 ML IVPB SCH (15:28)
[2018-12-23] MEDS: FAMOTIDINE 20 MG TAB PO SCH (15:29)
[2018-12-23] MEDS: FLUCONAZOLE 200 MG TAB PO SCH (15:29)
[2018-12-23] MEDS: POLYETHYLENE GLYCOL 17 GM PACKET PO SCH (15:30)
[2018-12-24 02:25] VITALS: BP 134/68; PULSE 68; RESP 19
[2018-12-24] MEDS: CIPROFLOXACIN 500 MG TAB PO SCH (05:39)
[2018-12-24] MEDS: LEVOTHYROXINE 125 MCG TAB PO SCH (05:39)
[2018-12-24 07:20] VITALS: BP 141/64; PULSE 74; RESP 20
[2018-12-24] MEDS ORDERED: POTASSIUM CHLORIDE (SR) 20 MEQ TAB PO STA (07:34)
[2018-12-24] MEDS: INSULIN ASPART [NOVOLOG] 3 ML PEN SC SCH ×4 (08:00→21:00)
[2018-12-24] MEDS: DICLOFENAC SODIUM 1% GEL 100 GM TUBE TP SCH ×4 (08:35→21:05)
[2018-12-24] MEDS: NYSTATIN 30 GM POWDER BTL TOP SCH ×2 (08:35→21:05)
[2018-12-24] MEDS: DAKINS 0.0125%(1/40) 473 ML SOLUTION TP SCH (08:35)
[2018-12-24] MEDS: AMMONIUM LACTATE 12% 225 GM LOT TOP SCH (08:36)
[2018-12-24] MEDS: DOCUSATE SODIUM 100 MG CAP PO SCH ×2 (08:36→21:04)
[2018-12-24] MEDS: FLUCONAZOLE 200 MG TAB PO SCH (08:37)
[2018-12-24] MEDS: POLYETHYLENE GLYCOL 17 GM PACKET PO SCH (08:37)
[2018-12-24] MEDS: BISACODYL (EC) 5 MG TAB PO PRN (08:37)
[2018-12-24] MEDS: SENNA/DOCUSATE NA (8.6MG/50MG) TAB PO SCH ×2 (08:37→21:04)
[2018-12-24] MEDS: SUCRALFATE (100 MG/ML) 10ML CUP PO SCH ×4 (08:37→21:04)
[2018-12-24] MEDS: BACLOFEN 10 MG TAB PO SCH ×3 (08:37→21:04)
[2018-12-24] MEDS: FAMOTIDINE 20 MG TAB PO SCH (08:37)
[2018-12-24] MEDS: CEFEPIME 2GM/50 ML (PMX) 50 ML IVPB SCH (08:37)
[2018-12-24] MEDS: HEPARIN 5,000 UNIT/1 ML VIAL SC SCH ×2 (08:39→21:07)
[2018-12-24] MEDS: CLOTRIMAZOLE 1% 30 GM CR TOP SCH (08:50)
[2018-12-24 14:34] VITALS: Ht 182.9 cm; Wt 116.1 kg
[2018-12-24 14:49] VITALS: BP 117/62; PULSE 63; RESP 20
[2018-12-24] MEDS: DAPTOMYCIN 800 MG in SOD CHLORIDE 0.9% 100 ML IVPB SCH (16:46)
[2018-12-24 19:25] VITALS: BP 115/59; PULSE 72; RESP 18
[2018-12-25] VITALS (16 sets, daily range): BP systolic 76–209; BP diastolic 27–132; PULSE 57–118; RESP 16–20
[2018-12-25] MEDS: LEVOTHYROXINE 125 MCG TAB PO SCH (05:46)
[2018-12-25] MEDS: CIPROFLOXACIN 500 MG TAB PO SCH (05:46)
[2018-12-25] MEDS: POLYETHYLENE GLYCOL 17 GM PACKET PO SCH (09:00)
[2018-12-25] MEDS: SENNA/DOCUSATE NA (8.6MG/50MG) TAB PO SCH ×2 (09:00→21:30)
[2018-12-25] MEDS: BACLOFEN 10 MG TAB PO SCH ×3 (09:03→21:31)
[2018-12-25] MEDS: FLUCONAZOLE 200 MG TAB PO SCH (09:03)
[2018-12-25] MEDS: FAMOTIDINE 20 MG TAB PO SCH (09:03)
[2018-12-25] MEDS: DOCUSATE SODIUM 100 MG CAP PO SCH ×2 (09:04→21:30)
[2018-12-25] MEDS: HEPARIN 5,000 UNIT/1 ML VIAL SC SCH ×2 (09:10→21:34)
[2018-12-25] MEDS: CEFEPIME 2GM/50 ML (PMX) 50 ML IVPB SCH (09:11)
[2018-12-25] MEDS: DAKINS 0.0125%(1/40) 473 ML SOLUTION TP SCH (09:11)
[2018-12-25] MEDS: AMMONIUM LACTATE 12% 225 GM LOT TOP SCH (09:12)
[2018-12-25] MEDS: NYSTATIN 30 GM POWDER BTL TOP SCH ×2 (09:12→21:32)
[2018-12-25] MEDS: CLOTRIMAZOLE 1% 30 GM CR TOP SCH (09:12)
[2018-12-25] MEDS: DICLOFENAC SODIUM 1% GEL 100 GM TUBE TP SCH ×4 (09:13→21:32)
[2018-12-25] MEDS: INSULIN ASPART [NOVOLOG] 3 ML PEN SC SCH ×4 (09:15→21:00)
[2018-12-25] MEDS: SUCRALFATE (100 MG/ML) 10ML CUP PO SCH ×4 (10:05→21:00)
[2018-12-25] MEDS ORDERED: ALBUMIN HUMAN 25% 100 ML IV PRN (14:00)
[2018-12-25] MEDS: HEPARIN 1000 UNITS/ML 10 ML INJ CATHETER SCH (16:18)
[2018-12-25] MEDS: DEXTROSE 5%-0.45% NACL 1,000 ML IV SCH (18:53)
[2018-12-25] MEDS: LORAZEPAM 2 MG INJ IV PRN (22:00)
[2018-12-26 01:30] VITALS: BP 139/71; PULSE 81; RESP 20
[2018-12-26] MEDS: LORAZEPAM 2 MG INJ IV PRN ×2 (03:53→10:02)
[2018-12-26] MEDS: LEVOTHYROXINE 125 MCG TAB PO SCH (05:50)
[2018-12-26] MEDS: CIPROFLOXACIN 500 MG TAB PO SCH (05:50)
[2018-12-26] MEDS: INSULIN ASPART [NOVOLOG] 3 ML PEN SC SCH ×4 (08:00→21:00)
[2018-12-26 08:20] VITALS: BP 134/61; PULSE 61; RESP 20
[2018-12-26] MEDS: SENNA/DOCUSATE NA (8.6MG/50MG) TAB PO SCH ×2 (09:00→21:28)
[2018-12-26] MEDS: NYSTATIN 30 GM POWDER BTL TOP SCH ×2 (09:00→21:29)
[2018-12-26] MEDS: CLOTRIMAZOLE 1% 30 GM CR TOP SCH (09:00)
[2018-12-26] MEDS: DOCUSATE SODIUM 100 MG CAP PO SCH ×2 (09:00→21:27)
[2018-12-26] MEDS: POLYETHYLENE GLYCOL 17 GM PACKET PO SCH (09:00)
[2018-12-26] MEDS: BACLOFEN 10 MG TAB PO SCH (09:00)
[2018-12-26] MEDS: FLUCONAZOLE 200 MG TAB PO SCH (09:00)
[2018-12-26] MEDS: AMMONIUM LACTATE 12% 225 GM LOT TOP SCH (09:00)
[2018-12-26] MEDS: SUCRALFATE (100 MG/ML) 10ML CUP PO SCH ×4 (09:00→21:28)
[2018-12-26] MEDS: FAMOTIDINE 20 MG TAB PO SCH (09:00)
[2018-12-26] MEDS: HEPARIN 5,000 UNIT/1 ML VIAL SC SCH ×2 (09:00→21:45)
[2018-12-26] MEDS: DICLOFENAC SODIUM 1% GEL 100 GM TUBE TP SCH ×4 (09:00→21:30)
[2018-12-26] MEDS: DAKINS 0.0125%(1/40) 473 ML SOLUTION TP SCH (09:00)
[2018-12-26] MEDS: CEFEPIME 2GM/50 ML (PMX) 50 ML IVPB SCH (10:02)
[2018-12-26 13:39] VITALS: BP 123/66; PULSE 78; RESP 20
[2018-12-26 15:37] VITALS: BP 91/58; PULSE 66; RESP 20
[2018-12-26] MEDS ORDERED: DAPTOMYCIN 700 MG in SOD CHLORIDE 0.9% 100 ML IVPB SCH (16:00)
[2018-12-26 20:00] VITALS: BP 124/83; PULSE 70; RESP 18
[2018-12-27] VITALS (26 sets, daily range): BP systolic 95–138; BP diastolic 50–73; PULSE 60–80; RESP 12–20
[2018-12-27] MEDS: LEVOTHYROXINE 125 MCG TAB PO SCH (05:34)
[2018-12-27] MEDS: CIPROFLOXACIN 500 MG TAB PO SCH (05:34)
[2018-12-27] MEDS: DEXTROSE 5%-0.45% NACL 1,000 ML IV SCH ×2 (05:35→19:00)
[2018-12-27] MEDS: INSULIN ASPART [NOVOLOG] 3 ML PEN SC SCH ×4 (08:00→21:00)
[2018-12-27] MEDS: POLYETHYLENE GLYCOL 17 GM PACKET PO SCH (09:00)
[2018-12-27] MEDS: HEPARIN 5,000 UNIT/1 ML VIAL SC SCH (09:00)
[2018-12-27] MEDS ORDERED: LIDOCAINE 1% (MDV) 20 ML INJ ONE ×2 (09:14→09:34)
[2018-12-27] MEDS ORDERED: FENTAnyl 50 MCG/ML VIAL ONE ×2 (09:34)
[2018-12-27] MEDS ORDERED: MIDAZOLAM 1 MG/ML 2 ML INJ ONE ×2 (09:35)
[2018-12-27] MEDS: SUCRALFATE (100 MG/ML) 10ML CUP PO SCH ×4 (12:58→22:45)
[2018-12-27] MEDS: SENNA/DOCUSATE NA (8.6MG/50MG) TAB PO SCH ×2 (12:58→22:47)
[2018-12-27] MEDS: FLUCONAZOLE 200 MG TAB PO SCH (12:58)
[2018-12-27] MEDS: FAMOTIDINE 20 MG TAB PO SCH (12:58)
[2018-12-27] MEDS: DOCUSATE SODIUM 100 MG CAP PO SCH ×2 (12:59→22:46)
[2018-12-27] MEDS: DICLOFENAC SODIUM 1% GEL 100 GM TUBE TP SCH ×4 (13:00→22:47)
[2018-12-27] MEDS: DAKINS 0.0125%(1/40) 473 ML SOLUTION TP SCH (13:02)
[2018-12-27] MEDS: NYSTATIN 30 GM POWDER BTL TOP SCH ×2 (13:02→22:48)
[2018-12-27] MEDS: AMMONIUM LACTATE 12% 225 GM LOT TOP SCH (13:03)
[2018-12-27] MEDS: CLOTRIMAZOLE 1% 30 GM CR TOP SCH (13:03)
[2018-12-27] MEDS ORDERED: VANCOMYCIN IV PER PHARMACY XX SCH (13:30)
[2018-12-27] MEDS: CEFEPIME 2GM/50 ML (PMX) 50 ML IVPB SCH (14:29)
[2018-12-27] MEDS ORDERED: VANCOMYCIN HCL 2 GM in SOD CHLORIDE 0.9% 500 ML IVPB SCH (15:30)
[2018-12-27] MEDS: HEPARIN 1000 UNITS/ML 10 ML INJ CATHETER SCH (22:44)
[2018-12-28] VITALS (7 sets, daily range): BP systolic 111–130; BP diastolic 61–80; PULSE 67–79; RESP 17–21
[2018-12-28] MEDS: CIPROFLOXACIN 500 MG TAB PO SCH (06:19)
[2018-12-28] MEDS: LEVOTHYROXINE 125 MCG TAB PO SCH (06:19)
[2018-12-28] MEDS: INSULIN ASPART [NOVOLOG] 3 ML PEN SC SCH ×4 (08:00→21:00)
[2018-12-28] MEDS: DICLOFENAC SODIUM 1% GEL 100 GM TUBE TP SCH ×4 (09:00→21:44)
[2018-12-28] MEDS: DAKINS 0.0125%(1/40) 473 ML SOLUTION TP SCH (09:00)
[2018-12-28] MEDS: SUCRALFATE (100 MG/ML) 10ML CUP PO SCH ×4 (10:28→21:41)
[2018-12-28] MEDS: AMMONIUM LACTATE 12% 225 GM LOT TOP SCH (10:29)
[2018-12-28] MEDS: NYSTATIN 30 GM POWDER BTL TOP SCH ×2 (10:31→21:45)
[2018-12-28] MEDS: CLOTRIMAZOLE 1% 30 GM CR TOP SCH (10:32)
[2018-12-28] MEDS: POLYETHYLENE GLYCOL 17 GM PACKET PO SCH (10:34)
[2018-12-28] MEDS: FLUCONAZOLE 200 MG TAB PO SCH (10:42)
[2018-12-28] MEDS: FAMOTIDINE 20 MG TAB PO SCH (10:44)
[2018-12-28] MEDS: DOCUSATE SODIUM 100 MG CAP PO SCH ×2 (10:56→21:42)
[2018-12-28] MEDS: SENNA/DOCUSATE NA (8.6MG/50MG) TAB PO SCH ×2 (10:56→21:42)
[2018-12-28] MEDS: HEPARIN 5,000 UNIT/1 ML VIAL SC SCH ×2 (10:56→21:00)
[2018-12-28] MEDS: CEFEPIME 2GM/50 ML (PMX) 50 ML IVPB SCH (12:27)
[2018-12-28] MEDS: DEXTROSE 5%-0.45% NACL 1,000 ML IV SCH (18:30)
[2018-12-29] VITALS (19 sets, daily range): BP systolic 103–135; BP diastolic 60–80; PULSE 69–88; RESP 17–20
[2018-12-29] MEDS ORDERED: VANCOMYCIN RANDOM W/ AM LAB XX ONE (05:00)
[2018-12-29] MEDS: INSULIN ASPART [NOVOLOG] 3 ML PEN SC SCH ×5 (06:30→21:00)
[2018-12-29] MEDS: LEVOTHYROXINE 125 MCG TAB PO SCH (06:43)
[2018-12-29] MEDS: CIPROFLOXACIN 500 MG TAB PO SCH (06:43)
[2018-12-29] MEDS: HEPARIN 5,000 UNIT/1 ML VIAL SC SCH ×2 (07:40→21:00)
[2018-12-29] MEDS: DAKINS 0.0125%(1/40) 473 ML SOLUTION TP SCH (07:41)
[2018-12-29] MEDS: CEFEPIME 2GM/50 ML (PMX) 50 ML IVPB SCH (09:00)
[2018-12-29] MEDS: POLYETHYLENE GLYCOL 17 GM PACKET PO SCH (09:00)
[2018-12-29] MEDS: SUCRALFATE (100 MG/ML) 10ML CUP PO SCH ×4 (09:00→21:12)
[2018-12-29] MEDS: NYSTATIN 30 GM POWDER BTL TOP SCH ×2 (09:22→21:11)
[2018-12-29] MEDS: AMMONIUM LACTATE 12% 225 GM LOT TOP SCH (09:22)
[2018-12-29] MEDS: FLUCONAZOLE 200 MG TAB PO SCH (09:23)
[2018-12-29] MEDS: DICLOFENAC SODIUM 1% GEL 100 GM TUBE TP SCH ×4 (09:23→21:11)
[2018-12-29] MEDS: FAMOTIDINE 20 MG TAB PO SCH (09:23)
[2018-12-29] MEDS: DOCUSATE SODIUM 100 MG CAP PO SCH ×2 (09:23→21:12)
[2018-12-29] MEDS: SENNA/DOCUSATE NA (8.6MG/50MG) TAB PO SCH ×2 (09:23→21:12)
[2018-12-29] MEDS: CLOTRIMAZOLE 1% 30 GM CR TOP SCH (09:24)
[2018-12-29] MEDS ORDERED: QUETIAPINE 25 MG TAB PO PRN (15:00)
[2018-12-29] MEDS: DEXTROSE 5%-0.45% NACL 1,000 ML IV SCH (17:45)
[2018-12-29] MEDS: LORAZEPAM 2 MG INJ IV PRN (19:48)
[2018-12-30] VITALS: BP 136/68; PULSE 69; RESP 18
[2018-12-30] MEDS: INSULIN ASPART [NOVOLOG] 3 ML PEN SC SCH ×3 (01:00→08:02)
[2018-12-30 04:00] VITALS: BP 127/62; PULSE 75; RESP 18
[2018-12-30] MEDS: LEVOTHYROXINE 125 MCG TAB PO SCH (06:05)
[2018-12-30] MEDS: CIPROFLOXACIN 500 MG TAB PO SCH (06:05)
[2018-12-30] MEDS: CEFEPIME 2GM/50 ML (PMX) 50 ML IVPB SCH (08:59)
[2018-12-30] MEDS: POLYETHYLENE GLYCOL 17 GM PACKET PO SCH (09:00)
[2018-12-30] MEDS: SENNA/DOCUSATE NA (8.6MG/50MG) TAB PO SCH ×2 (09:05→21:59)
[2018-12-30] MEDS: DOCUSATE SODIUM 100 MG CAP PO SCH ×2 (09:05→21:59)
[2018-12-30] MEDS: predniSONE 20 MG TAB PO SCH (09:05)
[2018-12-30] MEDS: FAMOTIDINE 20 MG TAB PO SCH (09:05)
[2018-12-30] MEDS: FLUCONAZOLE 200 MG TAB PO SCH (09:06)
[2018-12-30] MEDS: SUCRALFATE (100 MG/ML) 10ML CUP PO SCH ×2 (09:06→12:43)
[2018-12-30] MEDS: HEPARIN 5,000 UNIT/1 ML VIAL SC SCH ×2 (09:12→22:19)
[2018-12-30] MEDS: CLOTRIMAZOLE 1% 30 GM CR TOP SCH (09:30)
[2018-12-30] MEDS: NYSTATIN 30 GM POWDER BTL TOP SCH ×2 (09:30→21:00)
[2018-12-30] MEDS: DAKINS 0.0125%(1/40) 473 ML SOLUTION TP SCH (09:30)
[2018-12-30] MEDS: DICLOFENAC SODIUM 1% GEL 100 GM TUBE TP SCH ×4 (09:31→21:00)
[2018-12-30] MEDS: AMMONIUM LACTATE 12% 225 GM LOT TOP SCH (09:31)
[2018-12-30] MEDS ORDERED: INSULIN ASPART [NOVOLOG] 3 ML PEN SC SCH (11:30)
[2018-12-30 11:44] VITALS: BP 125/77; PULSE 79; RESP 18
[2018-12-30] MEDS ORDERED: VANCOMYCIN 1 GM 250 ML IVPB SCH (16:00)
[2018-12-30 16:28] VITALS: BP 122/67; PULSE 80; RESP 18
[2018-12-30] MEDS: DAPTOMYCIN 700 MG in SOD CHLORIDE 0.9% 100 ML IVPB SCH (18:10)
[2018-12-30] MEDS: DEXTROSE 5%-0.45% NACL 1,000 ML IV SCH (18:19)
[2018-12-30] MEDS: Insulin NOVOLOG SS MILD Algorithm (SS with meals and bedtime) SC SCH ×2 (18:59→22:18)
[2018-12-30 20:00] VITALS: BP 121/61; PULSE 98; RESP 19
[2018-12-30 23:51] VITALS: BP 110/60; PULSE 86; RESP 18
[2018-12-31] VITALS (21 sets, daily range): BP systolic 87–138; BP diastolic 55–82; PULSE 51–98; RESP 18–20
[2018-12-31] MEDS: BISACODYL (EC) 5 MG TAB PO PRN (02:17)
[2018-12-31] MEDS: DEXTROSE 5%-0.45% NACL 1,000 ML IV SCH (02:23)
[2018-12-31] MEDS: ACCUCHECK AT 2AM (Patients on SS coverage) XX SCH (02:25)
[2018-12-31] MEDS ORDERED: INSULIN ASPART [NOVOLOG] 3 ML PEN SC ONE (02:30)
[2018-12-31] MEDS ORDERED: ACCU-CHEK XX ONE (04:30)
[2018-12-31] MEDS: LEVOTHYROXINE 125 MCG TAB PO SCH (05:54)
[2018-12-31] MEDS: CIPROFLOXACIN 500 MG TAB PO SCH (05:54)
[2018-12-31] MEDS: predniSONE 20 MG TAB PO SCH (08:44)
[2018-12-31] MEDS: FLUCONAZOLE 200 MG TAB PO SCH (08:44)
[2018-12-31] MEDS: POLYETHYLENE GLYCOL 17 GM PACKET PO SCH (08:44)
[2018-12-31] MEDS: DOCUSATE SODIUM 100 MG CAP PO SCH ×2 (08:44→21:49)
[2018-12-31] MEDS: FAMOTIDINE 20 MG TAB PO SCH (08:44)
[2018-12-31] MEDS: SENNA/DOCUSATE NA (8.6MG/50MG) TAB PO SCH ×2 (08:44→21:49)
[2018-12-31] MEDS: Insulin NOVOLOG SS MILD Algorithm (SS with meals and bedtime) SC SCH ×4 (08:46→21:00)
[2018-12-31] MEDS: HEPARIN 5,000 UNIT/1 ML VIAL SC SCH ×2 (08:47→21:57)
[2018-12-31] MEDS: NYSTATIN 30 GM POWDER BTL TOP SCH ×2 (09:00→21:00)
[2018-12-31] MEDS: AMMONIUM LACTATE 12% 225 GM LOT TOP SCH (09:00)
[2018-12-31] MEDS: DAKINS 0.0125%(1/40) 473 ML SOLUTION TP SCH (09:00)
[2018-12-31] MEDS: CLOTRIMAZOLE 1% 30 GM CR TOP SCH (09:00)
[2018-12-31] MEDS: DICLOFENAC SODIUM 1% GEL 100 GM TUBE TP SCH ×4 (09:00→21:00)
[2018-12-31] MEDS: CEFEPIME 2GM/50 ML (PMX) 50 ML IVPB SCH (15:15)
[2018-12-31] MEDS ORDERED: KETOROLAC 30 MG INJ IV STA (22:22)
[2018-12-31] MEDS ORDERED: SOD CHLORIDE 0.9% 500 ML IV STA (22:22)
[2018-12-31] MEDS ORDERED: ALBUMIN HUMAN 25% 100 ML IV STA (22:22)
[2019-01-01] MEDS: ACCUCHECK AT 2AM (Patients on SS coverage) XX SCH (00:53)
[2019-01-01 02:10] VITALS: BP 119/63; PULSE 69; RESP 20
[2019-01-01] MEDS: LEVOTHYROXINE 125 MCG TAB PO SCH (06:27)
[2019-01-01] MEDS: CIPROFLOXACIN 500 MG TAB PO SCH (06:27)
[2019-01-01] MEDS: Insulin NOVOLOG SS MILD Algorithm (SS with meals and bedtime) SC SCH ×4 (07:30→21:00)
[2019-01-01 08:00] VITALS: BP 142/76; PULSE 59; RESP 16
[2019-01-01] MEDS: DICLOFENAC SODIUM 1% GEL 100 GM TUBE TP SCH ×4 (08:42→21:30)
[2019-01-01] MEDS: HEPARIN 5,000 UNIT/1 ML VIAL SC SCH ×2 (09:00→13:40)
[2019-01-01] MEDS ORDERED: LIDOCAINE 1%/EPI 30 ML INJ ONE (09:26)
[2019-01-01] MEDS ORDERED: SOD CHLORIDE 0.9% 500 ML ONE (09:26)
[2019-01-01] MEDS ORDERED: LIDOCAINE 1% (MDV) 20 ML INJ ONE (09:26)
[2019-01-01] MEDS ORDERED: MIDAZOLAM 1 MG/ML 2 ML INJ ONE (09:27)
[2019-01-01] MEDS ORDERED: FENTAnyl 50 MCG/ML VIAL ONE (09:27)
[2019-01-01] MEDS: SENNA/DOCUSATE NA (8.6MG/50MG) TAB PO SCH ×2 (13:37→21:27)
[2019-01-01] MEDS: FLUCONAZOLE 200 MG TAB PO SCH (13:37)
[2019-01-01] MEDS: DOCUSATE SODIUM 100 MG CAP PO SCH ×2 (13:37→21:26)
[2019-01-01] MEDS: FAMOTIDINE 20 MG TAB PO SCH (13:37)
[2019-01-01] MEDS: predniSONE 20 MG TAB PO SCH (13:37)
[2019-01-01] MEDS: POLYETHYLENE GLYCOL 17 GM PACKET PO SCH (13:42)
[2019-01-01 14:00] VITALS: BP 139/76; PULSE 76; RESP 19
[2019-01-01] MEDS: CEFEPIME 2GM/50 ML (PMX) 50 ML IVPB SCH (14:41)
[2019-01-01] MEDS: DAKINS 0.0125%(1/40) 473 ML SOLUTION TP SCH (14:52)
[2019-01-01] MEDS: AMMONIUM LACTATE 12% 225 GM LOT TOP SCH (14:52)
[2019-01-01] MEDS: NYSTATIN 30 GM POWDER BTL TOP SCH ×2 (14:53→21:30)
[2019-01-01] MEDS: CLOTRIMAZOLE 1% 30 GM CR TOP SCH (15:23)
[2019-01-01] MEDS: DAPTOMYCIN 700 MG in SOD CHLORIDE 0.9% 100 ML IVPB SCH (17:47)
[2019-01-01 20:00] VITALS: BP 141/69; PULSE 80; RESP 18
[2019-01-02] VITALS (18 sets, daily range): BP systolic 121–148; BP diastolic 60–86; PULSE 71–91; RESP 17–20
[2019-01-02] MEDS: ACCUCHECK AT 2AM (Patients on SS coverage) XX SCH (01:36)
[2019-01-02] MEDS: LEVOTHYROXINE 125 MCG TAB PO SCH (05:51)
[2019-01-02] MEDS: CIPROFLOXACIN 500 MG TAB PO SCH (05:51)
[2019-01-02] MEDS: Insulin NOVOLOG SS MILD Algorithm (SS with meals and bedtime) SC SCH ×4 (08:12→21:04)
[2019-01-02] MEDS: CEFEPIME 2GM/50 ML (PMX) 50 ML IVPB SCH (08:32)
[2019-01-02] MEDS: FAMOTIDINE 20 MG TAB PO SCH (08:37)
[2019-01-02] MEDS: predniSONE 20 MG TAB PO SCH (08:37)
[2019-01-02] MEDS: FLUCONAZOLE 200 MG TAB PO SCH (08:37)
[2019-01-02] MEDS: DICLOFENAC SODIUM 1% GEL 100 GM TUBE TP SCH ×4 (08:40→21:10)
[2019-01-02] MEDS: AMMONIUM LACTATE 12% 225 GM LOT TOP SCH (08:40)
[2019-01-02] MEDS: NYSTATIN 30 GM POWDER BTL TOP SCH ×2 (08:41→21:10)
[2019-01-02] MEDS: DAKINS 0.0125%(1/40) 473 ML SOLUTION TP SCH (08:41)
[2019-01-02] MEDS: CLOTRIMAZOLE 1% 30 GM CR TOP SCH (08:42)
[2019-01-02] MEDS: DOCUSATE SODIUM 100 MG CAP PO SCH ×3 (09:00→21:00)
[2019-01-02] MEDS: POLYETHYLENE GLYCOL 17 GM PACKET PO SCH ×2 (09:00→15:11)
[2019-01-02] MEDS: SENNA/DOCUSATE NA (8.6MG/50MG) TAB PO SCH ×3 (09:00→21:00)
[2019-01-02] MEDS: HEPARIN 5,000 UNIT/1 ML VIAL SC SCH ×3 (09:00→21:02)
[2019-01-02] MEDS: HEPARIN 1000 UNITS/ML 10 ML INJ CATHETER SCH (11:08)
[2019-01-02] MEDS: HYDROCODONE/APAP (10/325) TAB PO PRN (14:18)
[2019-01-02] MEDS: traMADol 50 MG TAB PO PRN (18:04)
[2019-01-03] VITALS (18 sets, daily range): BP systolic 126–157; BP diastolic 59–93; PULSE 56–83; RESP 16–19
[2019-01-03] MEDS: traMADol 50 MG TAB PO PRN ×2 (01:00→16:57)
[2019-01-03] MEDS: ACCUCHECK AT 2AM (Patients on SS coverage) XX SCH (02:00)
[2019-01-03] MEDS: CIPROFLOXACIN 500 MG TAB PO SCH (05:43)
[2019-01-03] MEDS: LEVOTHYROXINE 125 MCG TAB PO SCH (05:43)
[2019-01-03] MEDS: Insulin NOVOLOG SS MILD Algorithm (SS with meals and bedtime) SC SCH ×4 (07:00→21:00)
[2019-01-03] MEDS ORDERED: NA POLYST SULFON 15 GM/60 ML BTL PO ONE (08:30)
[2019-01-03] MEDS: HEPARIN 5,000 UNIT/1 ML VIAL SC SCH ×2 (09:00→20:59)
[2019-01-03] MEDS: SENNA/DOCUSATE NA (8.6MG/50MG) TAB PO SCH ×2 (09:00→20:57)
[2019-01-03] MEDS: DOCUSATE SODIUM 100 MG CAP PO SCH ×2 (10:34→20:57)
[2019-01-03] MEDS: FLUCONAZOLE 200 MG TAB PO SCH (10:35)
[2019-01-03] MEDS: FAMOTIDINE 20 MG TAB PO SCH (10:35)
[2019-01-03] MEDS: POLYETHYLENE GLYCOL 17 GM PACKET PO SCH (10:36)
[2019-01-03] MEDS: predniSONE 20 MG TAB PO SCH (10:36)
[2019-01-03] MEDS: CEFEPIME 2GM/50 ML (PMX) 50 ML IVPB SCH (10:37)
[2019-01-03] MEDS: AMMONIUM LACTATE 12% 225 GM LOT TOP SCH (10:38)
[2019-01-03] MEDS: NYSTATIN 30 GM POWDER BTL TOP SCH ×2 (10:39→21:03)
[2019-01-03] MEDS: DICLOFENAC SODIUM 1% GEL 100 GM TUBE TP SCH ×4 (10:39→21:02)
[2019-01-03] MEDS: DAKINS 0.0125%(1/40) 473 ML SOLUTION TP SCH (10:39)
[2019-01-03] MEDS: CLOTRIMAZOLE 1% 30 GM CR TOP SCH (10:39)
[2019-01-03] MEDS: HEPARIN 1000 UNITS/ML 10 ML INJ CATHETER SCH (14:07)
[2019-01-03] MEDS: DAPTOMYCIN 700 MG in SOD CHLORIDE 0.9% 100 ML IVPB SCH (16:58)
[2019-01-03] MEDS ORDERED: INSULIN ASPART [NOVOLOG] 3 ML PEN SC ONE (21:00)
[2019-01-04] MEDS: traMADol 50 MG TAB PO PRN ×3 (00:38→14:41)
[2019-01-04 01:55] VITALS: BP 119/67; PULSE 66; RESP 20
[2019-01-04] MEDS: ACCUCHECK AT 2AM (Patients on SS coverage) XX SCH (02:49)
[2019-01-04] MEDS: LEVOTHYROXINE 125 MCG TAB PO SCH (05:37)
[2019-01-04] MEDS: CIPROFLOXACIN 500 MG TAB PO SCH (05:37)
[2019-01-04] MEDS: Insulin NOVOLOG SS MILD Algorithm (SS with meals and bedtime) SC SCH ×4 (07:00→22:15)
[2019-01-04 07:45] VITALS: BP 146/73; PULSE 65; RESP 17
[2019-01-04] MEDS: DICLOFENAC SODIUM 1% GEL 100 GM TUBE TP SCH ×4 (08:45→22:19)
[2019-01-04] MEDS: NYSTATIN 30 GM POWDER BTL TOP SCH ×2 (08:45→22:19)
[2019-01-04] MEDS: DOCUSATE SODIUM 100 MG CAP PO SCH ×2 (08:46→22:03)
[2019-01-04] MEDS: predniSONE 20 MG TAB PO SCH (08:47)
[2019-01-04] MEDS: SENNA/DOCUSATE NA (8.6MG/50MG) TAB PO SCH ×2 (08:47→22:02)
[2019-01-04] MEDS: FLUCONAZOLE 200 MG TAB PO SCH (08:48)
[2019-01-04] MEDS: FAMOTIDINE 20 MG TAB PO SCH (08:48)
[2019-01-04] MEDS: POLYETHYLENE GLYCOL 17 GM PACKET PO SCH (08:48)
[2019-01-04] MEDS: CLOTRIMAZOLE 1% 30 GM CR TOP SCH (08:49)
[2019-01-04] MEDS: DAKINS 0.0125%(1/40) 473 ML SOLUTION TP SCH (08:49)
[2019-01-04] MEDS: AMMONIUM LACTATE 12% 225 GM LOT TOP SCH (08:49)
[2019-01-04] MEDS: CEFEPIME 2GM/50 ML (PMX) 50 ML IVPB SCH (08:51)
[2019-01-04] MEDS: HEPARIN 5,000 UNIT/1 ML VIAL SC SCH ×2 (08:55→22:14)
[2019-01-04 14:20] VITALS: BP 148/72; PULSE 88; RESP 17
[2019-01-04 20:13] VITALS: BP 125/65; PULSE 74; RESP 16
[2019-01-05] VITALS (16 sets, daily range): BP systolic 139–169; BP diastolic 66–100; PULSE 68–90; RESP 16–17
[2019-01-05] MEDS: ACCUCHECK AT 2AM (Patients on SS coverage) XX SCH (01:59)
[2019-01-05] MEDS: traMADol 50 MG TAB PO PRN ×2 (03:02→10:42)
[2019-01-05] MEDS: LEVOTHYROXINE 125 MCG TAB PO SCH (05:42)
[2019-01-05] MEDS: CIPROFLOXACIN 500 MG TAB PO SCH (05:42)
[2019-01-05] MEDS: ALTEPLASE (CATHFLO) 2 MG INJ CATHETER PRN (06:08)
[2019-01-05] MEDS: Insulin NOVOLOG SS MILD Algorithm (SS with meals and bedtime) SC SCH ×2 (08:16→12:48)
[2019-01-05] MEDS: POLYETHYLENE GLYCOL 17 GM PACKET PO SCH (09:00)
[2019-01-05] MEDS: DOCUSATE SODIUM 100 MG CAP PO SCH (09:08)
[2019-01-05] MEDS: SENNA/DOCUSATE NA (8.6MG/50MG) TAB PO SCH (09:08)
[2019-01-05] MEDS: FAMOTIDINE 20 MG TAB PO SCH (09:09)
[2019-01-05] MEDS: FLUCONAZOLE 200 MG TAB PO SCH (09:09)
[2019-01-05] MEDS: predniSONE 20 MG TAB PO SCH (09:09)
[2019-01-05] MEDS: HEPARIN 5,000 UNIT/1 ML VIAL SC SCH (09:11)
[2019-01-05] MEDS: AMMONIUM LACTATE 12% 225 GM LOT TOP SCH (09:13)
[2019-01-05] MEDS: DAKINS 0.0125%(1/40) 473 ML SOLUTION TP SCH (09:13)
[2019-01-05] MEDS: NYSTATIN 30 GM POWDER BTL TOP SCH (09:14)
[2019-01-05] MEDS: DICLOFENAC SODIUM 1% GEL 100 GM TUBE TP SCH ×2 (09:14→13:00)
[2019-01-05] MEDS: CLOTRIMAZOLE 1% 30 GM CR TOP SCH (09:14)
[2019-01-05] MEDS ORDERED: DIPHENHYDRAMINE 50 MG INJ IV ONE (10:30)
[2019-01-05] MEDS: HEPARIN 1000 UNITS/ML 10 ML INJ CATHETER SCH (12:43)
[2019-01-05] MEDS: CEFEPIME 2GM/50 ML (PMX) 50 ML IVPB SCH (12:48)
== END 2019-01-05 14:58 | disposition home health service (06) | DRG 622 ==
LOC: TEL 11-03 01:30 → 2NE 11-25 13:15 → 6WM 12-26 14:50 → PP2 12-31 00:50 → 2NE 01-02 22:15
PROVIDERS: ADMIT Internal Medicine; ATTEND Internal Medicine
PROC: 0QBP0ZZ Excision of Left Metatarsal, Open Approach (ICD-10-PCS; 2018-11-03)
PROC: 0QBN0ZZ Excision of Right Metatarsal, Open Approach (ICD-10-PCS; 2018-11-03)
PROC: 02HV33Z Insertion of Infusion Device into Superior Vena Cava, Percutaneous Approach (ICD-10-PCS; 2018-11-07)
PROC: 0QBP0ZZ Excision of Left Metatarsal, Open Approach (ICD-10-PCS; 2018-11-14)
PROC: 0QBN0ZZ Excision of Right Metatarsal, Open Approach (ICD-10-PCS; 2018-11-14)
PROC: 0QBQ0ZZ Excision of Right Toe Phalanx, Open Approach (ICD-10-PCS; 2018-11-14)
PROC: 0JBQ0ZZ Excision of Right Foot Subcutaneous Tissue and Fascia, Open Approach (ICD-10-PCS; principal; 2018-11-14 15:30)
PROC: 0TB13ZX Excision of Left Kidney, Percutaneous Approach, Diagnostic (ICD-10-PCS; 2018-12-27)
PROC: 0JHD3XZ Insertion of Tunneled Vascular Access Device into Right Upper Arm Subcutaneous Tissue and Fascia, Percutaneous Approach (ICD-10-PCS; 2019-01-01)
PROC: 05HM33Z Insertion of Infusion Device into Right Internal Jugular Vein, Percutaneous Approach (ICD-10-PCS; 2019-01-01)
PROC: B513YZA Fluoroscopy of Right Jugular Veins using Other Contrast, Guidance (ICD-10-PCS; 2019-01-01)
PROC: 5A1D70Z Performance of Urinary Filtration, Intermittent, Less than 6 Hours Per Day (ICD-10-PCS; 2019-01-01)
DX: E11.69 Type 2 diabetes mellitus with other specified complication (principal); I50.23 Acute on chronic systolic (congestive) heart failure; G93.41 Metabolic encephalopathy; M86.9 Osteomyelitis, unspecified; I13.0 Hypertensive heart and chronic kidney disease with heart failure and stage 1 through stage 4 chronic kidney disease, or unspecified chronic kidney disease; M84.472A Pathological fracture, left ankle, initial encounter for fracture; D62 Acute posthemorrhagic anemia; Z68.42 Body mass index [BMI] 45.0-49.9, adult; L03.116 Cellulitis of left lower limb; L03.115 Cellulitis of right lower limb; I42.9 Cardiomyopathy, unspecified; M84.475A Pathological fracture, left foot, initial encounter for fracture; I87.8 Other specified disorders of veins; I89.0 Lymphedema, not elsewhere classified; L97.519 Non-pressure chronic ulcer of other part of right foot with unspecified severity; L97.529 Non-pressure chronic ulcer of other part of left foot with unspecified severity; E11.621 Type 2 diabetes mellitus with foot ulcer; E11.22 Type 2 diabetes mellitus with diabetic chronic kidney disease; N18.9 Chronic kidney disease, unspecified; E66.01 Morbid (severe) obesity due to excess calories; E87.5 Hyperkalemia; E83.9 Disorder of mineral metabolism, unspecified; E11.40 Type 2 diabetes mellitus with diabetic neuropathy, unspecified; E03.9 Hypothyroidism, unspecified; E86.0 Dehydration; B35.1 Tinea unguium; N17.0 Acute kidney failure with tubular necrosis; N17.9 Acute kidney failure, unspecified; M60.9 Myositis, unspecified; M60.872 Other myositis, left ankle and foot; M60.871 Other myositis, right ankle and foot; N28.1 Cyst of kidney, acquired; K80.20 Calculus of gallbladder without cholecystitis without obstruction; R19.00 Intra-abdominal and pelvic swelling, mass and lump, unspecified site; Z88.6 Allergy status to analgesic agent; Z86.19 Personal history of other infectious and parasitic diseases; Z89.421 Acquired absence of other right toe(s); Z99.2 Dependence on renal dialysis
CPT/HCPCS: 36430; 36556; 36558; 36569; 36600; 70450; 70551; 71045; 73630; 73718; 73721; 74018; 74150; 75635; 76700; 76775; 76870; 76937; 76942; 77012; 80048; 80053; 80061; 80069; 80202; 81001; 81003; 82043; 82140; 82270; 82550; 82595; 82607; 82803; 82962; 83036; 83540; 83690; 83735; 83880; 84100; 84132; 84145; 84155; 84300; 84439; 84443; 84484; 85014; 85018; 85025; 85610; 85651; 85730; 86021; 86038; 86140; 86160; 86162; 86226; 86430; 86704; 86706; 86709; 86803; 86850; 86900; 86901; 86920; 87070; 87075; 87102; 87116; 87340; 88304; 88311; 89190; 90935; 93005; 93306; 93922; 97110; 97162; 97164; 97167; 97530; C1752; C1769; J0690; J0692; J1170; J1200; J1335; J1644; J1815; J1885; J1940; J2060; J2250; J2270; J2405; J2795; J2997; J3010; J3370; J3475; J7040; J7042; J7050; J7512; P9016; P9047; Q9967